=== PATIENT | female | born 1985 | race Asian ===

== ENCOUNTER 2020-01-24 13:07 | Emergency (ER) | payer OTHER, SELFPAY ==
--- NOTE | ~2020-01-24 | XR_ITS ---
EXAMINATION: XR barium swallow EXAM DATE: 01/24/2020 13:56 INDICATION: Swallowed something sharp. Dysphagia. TECHNIQUE: Standard thick followed by thin contrast barium esophagram examination was performed. The DAP for this procedure was 0.2 Gycm2. There is no prior study for comparison. FINDINGS: The pharynx is symmetric and without evidence of mass lesion or mucosal irregularity. Ther e is no esophageal stricture or mass identified. There are no esophageal diverticula. Gastroesophag eal junction is normal in appearance. IMPRESSION: Normal exam. Reviewed, dictated and finalized at location A. IMPRESSION: Normal exam.
[2020-01-24 13:14] VITALS: BP 145/92; PULSE 77; RESP 17; TEMP 36.6; O2SAT 100
--- NOTE | 2020-01-24 13:33 | ED.GENADULT ---
HPI - General Adult General Chief complaint: Skin/Abscess/Foreign Body Stated complaint: FB in throat Time Seen by Provider: 01/24/20 13:23 Source: patient History of Present Illness HPI narrative: Patient believes that a lennon seed stuck at the left side of her throat since last night,. Patient vomited once, currently complaining of achy pain at the left side of her throat. Related Data Home Medications Medication Instructions Recorded Confirmed clobetasol TOPICAL 01/24/20 folic acid 01/24/20 methotrexate sodium 01/24/20 Allergies Allergy/AdvReac Type Severity Reaction Status Date / Time No Known Allergies Allergy Unverified 01/24/20 13:38 Review of Systems Review of Systems: Narrative: CONSTITUTIONAL: Denies fever, chills, or sweats. EYES: Denies visual changes, redness, or discharge. ENT: Denies rhinorrhea, congestion, sore throat, or otalgia. CARDIOVASCULAR: Denies chest pain, palpitations, or edema. RESPIRATORY: Denies cough or dyspnea. GASTROINTESTINAL: Denies abdominal pain, nausea, vomiting, or diarrhea. GENITOURINARY: Denies dysuria or hematuria. SKIN: Denies rash or itching. MUSCULOSKELETAL: Denies back pain, joint pain, or myalgia. NEUROLOGIC: Denies headache, numbness, or weakness. PSYCHIATRIC: Denies anxiety or depression. PMFSH Social History Social History Gender identity (if verbalized by the patient): Female Exam Narrative: Exam Narrative: General appearance: Well-developed, well-nourished Skin: Normal color Head: Normocephalic, nontraumatic Eyes: Clear conjunctiva ENT: Oropharynx normal, ears normal, nose normal Neck: Supple, nontender Chest and respiratory: Airway patent, no respiratory distress, no accessory muscle use Heart: Regular rate/rhythm Neurologic: Alert and oriented ?3, CHEF INSTRUCTOR is normal as tested, no gross motor deficit Course Course Emergency Course: Stable Vital Signs Vital signs: Vital Signs Temperature 36.6 C 01/24/20 13:14 Pulse Rate 77 01/24/20 13:14 Respiratory Rate 17 01/24/20 13:14 Blood Pressure 145/92 H 01/24/20 13:14 Pulse Oximetry 100 01/24/20 13:14 Temperature 36.6 C 01/24/20 13:14 Pulse Rate 77 01/24/20 13:14 Respiratory Rate 17 01/24/20 13:14 Blood Pressure 145/92 H 01/24/20 13:14 Pulse Oximetry 100 01/24/20 13:14 Medical Decision Making MDM Narrative Medical decision making narrative: Barium swallow ordered. Further plan to follow Vital Signs Vital Signs: Vital Signs Temperature 36.6 C 01/24/20 13:14 Pulse Rate 77 01/24/20 13:14 Respiratory Rate 17 01/24/20 13:14 Blood Pressure 145/92 H 01/24/20 13:14 Pulse Oximetry 100 01/24/20 13:14 Temperature 36.6 C 01/24/20 13:14 Pulse Rate 77 01/24/20 13:14 Respiratory Rate 17 01/24/20 13:14 Blood Pressure 145/92 H 01/24/20 13:14 Pulse Oximetry 100 01/24/20 13:14 Imaging Data Radiologist's impression: ITS Impressions Barium Swallow X-Ray 01/24/20 14:00 IMPRESSION: Normal exam. Critical Care Time Critical Care Time Critical Care Time: No Discharge Plan Discharge Clinical Impression: Acute sore throat Patient Disposition: Home, Self-Care Condition: Stable Instructions: Foreign Body Ingestion (ED) Additional Instructions: Return if symptoms are worsening , call your family physician for appointment, take Tylenol as as needed for aches and pain, continue home medications. Prescriptions: No Action clobetasol 0.05 % cream TOPICAL RF: 0 methotrexate sodium 2.5 mg tablet RF: 0 folic acid 1 mg tablet RF: 0 Follow-up/Referral
== END 2020-01-24 14:40 | disposition home or self-care (01) ==
PROVIDERS: Emergency Provider Emergency Medicine; PCP Nurse Practitioner Family
DX: J02.9 Acute pharyngitis, unspecified (principal)
CPT/HCPCS: 74220; 99283

== ENCOUNTER 2022-03-28 14:38 | Outpatient (CLI) | payer OTHER, SELFPAY ==
--- NOTE | ~2022-03-28 | XR_ITS ---
EXAMINATION: XR chest 2V 03/28/2022 14:55 INDICATION: Dyspnea PROCEDURE: 2 view chest COMPARISON: No prior studies for comparison. FINDINGS: The lungs are clear. The cardiomediastinal silhouette is within normal limits. There are no pleural effusions. There is no pneumothorax suspected. Mild dextroscoliosis. IMPRESSION: 1: NO ACUTE CARDIOPULMONARY DISEASE. Reviewed, dictated and finalized at location A.
== END 2022-03-28 14:39 | disposition home or self-care (01) ==
PROVIDERS: PCP Nurse Practitioner Family; Visit Provider Nurse Practitioner Family
DX: R06.00 Dyspnea, unspecified (principal)
CPT/HCPCS: 71046

== ENCOUNTER 2023-04-09 13:04 | Outpatient (CLI) | payer OTHER, SELFPAY ==
--- NOTE | ~2023-04-09 | XR_ITS ---
XR wrist LT min 3V DATE: 04/09/2023 13:22 INDICATION: Left wrist pain TECHNIQUE: 4 views COMPARISON: None FINDINGS: No fracture or dislocation, periosteal reaction or bone destruction, joint space narrowing, erosive change or chondrocalcinosis is detected. IMPRESSION: Negative Reviewed, dictated and finalized at location B. IMPRESSION: Negative
== END 2023-04-09 13:05 | disposition home or self-care (01) ==
PROVIDERS: PCP Nurse Practitioner Family; Visit Provider Nurse Practitioner Family
DX: M25.532 Pain in left wrist (principal)
CPT/HCPCS: 73110

== ENCOUNTER 2024-12-29 10:11 | Outpatient (CLI) | payer OTHER, SELFPAY ==
--- NOTE | ~2024-12-29 | MM_ITS ---
EXAMINATION: MM screening imani BI w stewart HISTORY: Screening TECHNIQUE: Craniocaudal and mediolateral oblique 3-D tomosynthesis images were obtained and synthetic 2-D images were generated. CAD analysis was submitted and interpreted. COMPARISON: No prior mammogram is available for comparison at this institution. BREAST PARENCHYMAL COMPOSITION: Dense: The breasts are heterogeneously dense, which may obscure small masses FINDINGS: There is no evidence of suspicious mass, calcification, or architectural distortion to sugg est malignancy in either breast. There has been no suspicious interval change. IMPRESSION: 1. No mammographic evidence of malignancy. 2. Recommend routine screening mammography in one year. BI-RADS Category 1: Negative Reviewed, dictated and finalized at location A.
--- OUTSIDE RECORDS SUMMARY | 2024-12-29 10:22 | XMS_ITS | Clinical Summary ---
Author Organization [facility] Address [address] [place] [address] Phone Care Team Providers Care Able Bodied Watchman Name Role Phone Alex Chamberlain APRN, PETROLOGIST Primary Care Provider Deepali Mcgovern MD Unavailable Allergies No known active allergies Medications fexofenadine (JESSICA) 180 MG Tablet Take 180 mg by mouth. 8 Active etonogestrel (NEXPLANON) 68 MG Implant 68 mg by Subcutaneous route. Active Dupilumab (DUPIXENT SC) 1 auto injector by Subcutaneous route every 14 days. Active Active Problems Problem Noted Date Diagnosed Date Thyroid nodule 04/14/2019 History of thyroid cancer 04/14/2019 Immunizations Immunization Administration Dates Next Due Influenza Vaccine 03/22/2016 Influenza Vaccine, Quadrivalent, PF 03/25,04/05/2021,04/23/2020,2017 Influenza Vaccine,unspecifie d Formulation 04/29/2019 TDAP Vaccine 04/30/2016,03/14/2016 Family History Medical History Relation Name Comments No Known Problems Brother 1 No Known Problems Brother 2 No Known Problems Brother 3 No Known Problems Brother 4 No Known Problems Father Chronic Obstructive Pulmonary Disease Mother Heart Disease Mother Hepatitis Mother No Known Problems Sister 1 No Known Problems Sister 2 No Known Problems Sister 3 No Known Problems Sister 4 Relation Name Status Comments Brother 1 Alive Brother 2 Alive Brother 3 Alive Brother 4 Alive Father Alive Mother Alive Sister 1 Alive Sister 2 Alive Sister 3 Alive Sister 4 Alive Social History Tobacco Use Types Packs/Day Years Used Date Smoking Tobacco: Never Smokeless Tobacco: Never Tobacco Cessation:Counseling Given: No Alcohol Use Standard Drinks/Week Comments Not Currently 0 (1 standard drink = 0.6 oz pur e alcohol) AUDIT-C Answer Date Recorded Frequency of Alcohol Consumption Never 04/14/2019 Average Number of Drinks Not on file 019 Frequency of Binge Drinking Not on file 03/26 Sexually Active Control Partners Comments Yes Male Comments No Sex and Gender Information Value Date Recorded Sex Assigned at Not on file Legal Sex Female 12:09 AM CDT Gender Identity Not on file Sexual Orientation Not on file Last Filed Vital Signs Vital Sign Reading Time Taken Comments Blood Pressure 105/44 07/10/2024 10:10 AM TOURIST ESCORT Pulse 69 07/10/2024 10:10 AM TOURIST ESCORT Temperature 36.3 C (97.4 F) 07/10/2024 10:10 AM TOURIST ESCORT Respiratory Rate 16 07/10/2024 10:10 AM TOURIST ESCORT Oxygen Saturation 100% 07/10/2024 10:10 AM TOURIST ESCORT Inhaled Oxygen Concentration - - Weight 60.3 kg (133 lb) 07/10/2024 9:30 AM TOURIST ESCORT Height 152.4 cm (5') 07/10/2024 9:30 AM TOURIST ESCORT Body Mass Index 25.97 07/10/2024 9:30 AM TOURIST ESCORT Plan of Treatment Upcoming Encounters Date Type Department Care Team (Late st Contact Info) Description 04/27/2025 10:00 AM TOURIST ESCORT Office Visit [facility] - Endocrinology - [place] [address] [place] [id number] Deepali Mcgovern MD [address] [address] Health Maintenance Due Date Last Done Comments Mammogram 1984 Human Papillomavirus (HPV) Immunization (1 - 3-dose series) 1999 Hepatitis B Immunization (1 of 3 - 19+ 3-dose series) 2003 Pap Smear 2005 Cervical Cancer Screening (CCS) 2014 HPV/Cotest 2014 SARS-COV-2 Immunization ( season) 2024 07/22/2021, 11/14/2020, 10/11/2020 Discussion re Starting/Frequency of Mammograms 2024 Influenza Immunization (Season Ended) 2025 04/12/2022, 04/05/2021, 04/23/2020, Additional history exists Td Immunization Every 10 Years (Adults With 1 Tdap) 04/30/2026 04/30/2016, 03/14/2016 Respiratory Syncytial Virus (RSV) Immunization (Adult) (1 - 1-dose 75+ series) 2059 DTaP/Tdap/Td Immunization Discontinued 04/30/2016, Hepatitis C Virus (HCV) Screening Completed 06/07/2019 Meningococcal Immunization (ACWY) Aged Out No longer eligible based on patient's age to complete this topic Pneumococcal Immunization Combined Aged Out No longer eligible based on patient's age to complete this topic Rotavirus Immunization Aged Out No lo nger eligible based on patient's age to complete this topic Insurance MEDICAID [place] Care Teams Able Bodied Watchman Relationship Specialty Start Date End Date Alex Chamberlain, RETAIL INTERIOR DESIGNER, PETROLOGIST [address] [place] [address] PCP - General Certified Nurse Practitioner 02/19/19 Deepali Mcgovern MD [address] [phone] Consulting Physician Endocrinology 04/14/22
--- OUTSIDE RECORDS SUMMARY | 2024-12-29 10:22 | XMS_ITS | Encounter Summary ---
Author Organization [facility] Address [address] [place] [address] Care Team Providers Care Yarn Weigher Name Role Phone ChamberlainAlex LAND COMMISSIONER-FOUNTAIN MANAGER Primary Care Provider Reason for Visit * Reason Onset Date Comments Nurse Only 04/24/2024 Encounter Details Date Type Department Care Team (Late st Contact Info) Description 04/24/2024 Telephone [facility] - Dermatology [address] [place] [address], [place] [phone] Silvia Quezada MD [facility] [place] [address] Nurse Only Social History Tobacco Use Types Packs/Day Years Used Date Smoking Tobacco: Never Smokeless Tobacco: Never Alcohol Use Standard Drinks/Week Comments No 0 (1 standard drink = 0.6 oz pur e alcohol) Comments No Sex and Gender Information Value Date Recorded Sex Assigned at Not on file Legal Sex Female 3:01 PM CDT Gender Identity Not on file Sexual Orientation Not on file documented as of this encounter Progress Notes * Ana Cyr - 04/30/2024 9:35 AM CST Called and spoke with patient regarding approval of Dupixent and transfer of script to [facility] Specialty pharmacy. Patient has already received a phone call from [facility] regarding her prescription. Ana Cyr- Pharmacy Bridal Service Sales And Management (Dermatology) NG MACHINE BACK TENDER * Ana Cyr - 04/25/2024 2:44 PM CDT Medication Prior Authorization: Medication: Dupixent 300mg/2ml pen Status: Approved 04/23/24 through 04/23/25 Submitted via: [employer] Insurance: [employer] [place] (p: [phone]) Case/Reference number: [id number] RX Card Billing Info: BIN: [id number] PCN: [id number] GROUP: [id number] ID: [id number] PA approval notice uploaded to media tab. Routed approval details to [facility]. Ana Cyr- Pharmacy [facility] (Dermatology) documented in this encounter Miscellaneous Notes * Telephone Encounter - Bebe Hernandez - 04/24/2024 9:35 AM CDT Pt would like to speak with provider regarding medication. She is stating that she has followed thesteps that provider instructed to clearing her eczema and its has got worst. She also is asking if their is an update on injection medication from insurance. CB# [phone] documented in this encounter Plan of Treatment Not on file documented as of this encounter Visit Diagnoses Not on filedocumented in this encounter Care Teams Yarn Weigher Relationship Specialty Start Date End Date Alex Chamberlain, LAND COMMISSIONER-FOUNTAIN MANAGER [address] [place] [address] [place] [address] PCP - General Nurse Practitioner Family 11/13/17 documented as of this encounter
--- OUTSIDE RECORDS SUMMARY | 2024-12-29 10:22 | XMS_ITS | Continuity of Care Document ---
Author Name [facility] Organization [facility] Care Team Providers Care Entry Level Accounting Clerk Name Role Phone [facility] Unavailable Unavailable Social History Combined list of available smoking, tobacco, and other social history from Department of Defense and Veterans Affairs facilities. Social History Type Response Date Comment Sourc e This section is an empty social history section. [facility]
--- OUTSIDE RECORDS SUMMARY | 2024-12-29 10:22 | XMS_ITS | Data Portability ---
Author Organization [facility] Address [address] [place] [address] [place] [address] Care Team Providers Care Primary Care Nurse Name Role Phone JENI GREENE Primary Care Provider Assessment Encounter Date Assessment Date Assessment LastModified by Organization Details LastModified Time 10/02/2022 10/02/2022 Annual gynecological exam performed. Patient will come back in a year unless there are new symptoms. [email or web address] Not available 10/02/2022 11:27:17 10/08/2023 10/08/2023 Annual gynecological exam performed. Patient will come back in a year unless there are new symptoms. [email or web address] Not available 10/08/2023 09:14:49 Plan of Treatment Reminders Order Date Submit Date Provider Last Modified By Organization Details Last Modified Time Details Appointments None recorded. Lab test, urine 2023 024 [email or web address] 1 [place], [address], [place], [address], 13:18:14 Referral None recorded. Procedures None recorded. Surgeries None recorded. Imaging MAMMO, screening, digital, bilateral 2023 024 [facility], [address], [facility], [place], [address], 4 05:01:36 Medication Orders Nexplanon 68 mg subdermal implant 2023 024 [email or web address] 1 [id number], [address], [place], [place], [id number], 13:20:29 Patient TargetsNo targets recorded. Patient Instructions Encounter Date Encounter Id Patient Instructions Last Modified By Organization Details Last Modified Time 07/02/2023 [id number] surgical trays* [email or web address] Not availabl e 07/12/2023 13:13:59 Reason for Referral None Reported. Results Created Date Observation Date Name Description Value Unit Range Abnormal Flag Note LastModifiedBy Organization Detail LastModifiedTime 07/12/19 21 07/13/2020 beta- HCG, quant itati ve, serum or plasm a beta-HCG, serum, (quantitativ e) <1 mIU/m L HCG Refer ence Range s: Males : <0.2- 2.6 mIU/m L Nonpr egnan t Femal e: <0.2- 5 mIU/m L Post- menop ausal Femal e: <0.2- 8.3 mIU/m L Elisa l Pregn daren: Week 3 hCG Range : 5.8-7 1.2 mIU/m L Week 4 hCG Range : 9.5-7 50 mIU/m L Week 5 hCG Range : 217-7 138 mIU/m L Week 6 hCG Range : 158-3 1795 mIU/m L Week 7 hCG Range : 3697- 25473 3 mIU/m L Week 8 hCG Range : 98018 -1495 71 mIU/m L Week 9 hCG Range : 43125 -1514 10 mIU/m L Week 10 hCG Range : 18490 -1869 77 mIU/m L Week 12 hCG Range : 66211 -2106 12 mIU/m L Week 14 hCG Range : 22366 -6253 0 mIU/m L Week 15 hCG Range : 84685 -7097 1 mIU/m L Week 16 hCG Range : 9040- 21251 mIU/m L Week 17 hCG Range : 8175- 01507 mIU/m L Week 18 hCG Range : 8099- 40952 mIU/m L Not Available [facility] ([facility]) [address], [place], [address], 07/13/2020 06:17:40 10/03/19 23 10/02/2022 IMAGE GUIDE D PAP AND HPV REGAR DLESS image guided Pap, HPV regardless of Pap result SEE RESULT S BELOW CASE REPOR T: Cytol ogy Gynec ologi [place] Repor t Case: [id number] Autho vin ivory Provi mendoza: Leilani Stark, PALS SPECIALIST Colle cted: 10/02 1516 Order ing Locat ion: [place] [facility] Recei darius: 10/03 0328 First Scree n: Susanna Abreu, CT Rescr een: Elliot headley, Bartolo castillo, CT Speci men: Scree yessenia Pap - Image d, Cervi x STATE MENT OF ADEQU ACY: Satis facto ry for evalu ation Trans forma tion zone compo nent absen t The absen ce of an endoc ervic al compo nent was confi rmed by an addit ional scree ner. FINAL DIAGN OSIS: Negat roderick for Intra epith elial Lesio n or Reinaldo baker (NIL) . Funga l organ isms morph ologi gardenia consi stent with Shavon da spp. Elect paul watson adam d by Elliot headley, Bartolo castillo, CT on 2022 at 7:04 PM ----- ----- ----- ----- ----- ----- ----- ----- ----- ----- ----- ----- ----- ----- ----- ----- ----- ---- HPV RESUL TS: HPV mRNA E6/E7 : No HPV mRNA Detec lynette NOTE: This high risk HPV mRNA assay detec ts fourt een high- risk HPV types (16, 18, 31, 33, 35, 39, 45, 51, 52, 56, 58, 59, 66, 68) witho ut diffe renti ation . COMME NT: This speci men was revie wed by a Cytot echno logis t and/o r Patho logis t (as indic ated in this repor t) after evalu ation using the Thinp rep Imagi ng Syste m. [facility] [place] INFOR MATIO N: Menst rual Statu s: LMP (if appli cable ): [facility]ini [place] Histo ry/Pr eviou s Pap: Type of Neopl loy (if appli cable ): Signi fican t [facility] [place] Findi ngs: Other Histo ry: Hormo jonathon (if appli cable ): PAP EDUCA LEXI L NOTE: The Pap Test is a scree yessenia test with an inher ent false negat roderick rate. Liqui d-bas ed sampl ing may decre ase, but will not elimi kieran, false negat roderick resul ts. A negat roderick resul t does not precl ude the prese nce and/o r devel opmen t of disea se, since the prese nce of abnor mal cells in the sampl e depen ds on the locat ion of the lesio n and sampl ing techn ique. Willi nued regul ar scree yessenia is the best metho d of cance r preve ntion . If repor lynette cytol ogic findi ng do not corre late with physi [place] and/o r histo rical findi ngs, furth er inves tigat ion is recom lisbet d, as clini gardenia cortes nted. Not Available [facility] (Lab) [address], [place], [address], 10/05/2022 20:06:47 07/02/19 24 07/02/2023 pregn daren test, urine HCG negati ve Not Available [place] [address], [place], [address], 07/02/2023 13:17:46 Result Notes None recorded. 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 09:45:22 Abnormal uterine bleeding [id number] 100 Completed 201606/28/2020 Other specifie d abnormal uterine and vaginal bleeding ;Recorde d Elsewher e: No Locat ion: [facility] S ource: EHR Field Research Associate tristin: N Practi ce ID: [id number] Catracho lable Time: 10:30:00 AM Aleksandra cha, [facility] 09:43:53 Gestatio nal diabetes mellitus [id number] Completed 201506/28/2020 Gestatio nal diabetes mellitus in pregnanc y, diet controll ed;Recor ded Elsewher e: No Locat ion: [facility] Practi ce ID: [id number] Catracho lable Time: 01:00:00 PM Aleksandra cha, [facility] 09:44:42 Routine antenata l care Completed 201006/28/2020 Supervis ion of other normal pregnanc y;Practi ce ID: 0001 Aleksandra cha, [facility] 09:45:14 Speciali zed medical examinat ion Completed 201006/28/2020 Routine gynecolo gical examinat ion;Prac adriana ID: 0001 Aleksandra cha, [facility] 09:45:24 Pregnanc y test positive [id number] Completed 201006/28/2020 Positive Pregnanc y Test;Pra ctice ID: 0001 Aleksandra cha, [facility] 09:44:52 Screenin g for malignan t neoplasm of cervix Completed 201006/28/2020 Pap Smear;Pr actice ID: 0001 Aleksandra cha, [facility] 09:45:15 Primigra deep [id number] Completed 201006/28/2020 Supervis ion of normal first pregnanc y;Practi ce ID: 0001 Aleksandra cha, [facility] 09:45:08 anatomy study Completed 201006/28/2020 [facility] ANATMC SURVEY;P ractice ID: 0001 Aleksandra cha, [facility] 09:44:01 Pregnanc y detectio n examinat ion Completed 201506/28/2020 Encounte r for pregnanc y test, result positive ;Practic e ID: 0001 Aleksandra cha [facility] 09:44:49 Normal pregnanc y in multigra deep [id number] 4106 Completed 201506/28/2020 Encounte r for suprvsn of normal pregnanc y, first trimeste r;Practi ce ID: 0001 Aleksandra cha, [facility] 09:44:48 Abnormal finding on antenata l screenin g of mother [id number] Completed 201506/28/2020 Abnormal hematolo g finding on antenata l screenin g of mother;R ecorded Elsewher e: No [facility] S ource: EHR Field Research Associate tristin: N Practi ce ID: 0001 Catracho lable Time: 04:15:00 PM Aleksandra cha [facility] 09:43:51 Gestatio n period, 34 weeks [id number] Completed 201506/28/2020 34 weeks gestatio n of pregnanc y;Record ed Elsewher e: No Locat ion: Jeff huang [facility] S ource: EHR Field Research Associate tristin: N Practi ce ID: [id number] Catracho lable Time: 11:30:00 AM Aleksandra cha, [facility] 09:44:33 finding Completed 201506/28/2020 Matern care for oth or susp poor fetl grth, third tri, unsp;Rec orded Elsewher e: No Locat ion: [facility] S ource: EHR Field Research Associate tristin: N Practi ce ID: [id number] Catracho lable Time: 01:00:00 PM Aleksandra cha, [facility] 1 09:44:03 Gestatio n period, 36 weeks [id number] Completed 201506/28/2020 36 weeks gestatio n of pregnanc y;Record ed Elsewher e: No Locat ion: [facility] S ource: EHR Field Research Associate tristin: N Damiánti ce ID: [id number] Catracho lable Time: 11:30:00 AM Aleksandra cha, [facility] 09:44:36 Educatio n Completed 201606/28/2020 Encounte r for other general counseli ng and advice on contrace ption;Re corded Elsewher e: No Locat ion: [facility] S ource: EHR Field Research Associate tristin: N Damiánti ce ID: [id number] Catracho lable Time: 08:45:00 AM Aleksandra cha, [facility] 1 09:44:00 Imaging result abnormal [id number] Completed 201706/28/2020 Abnormal findings on diagnost ic imaging of body structur es;Recor ded Elsewher e: No Locat ion: [facility] S ource: EHR Field Research Associate tristin: N Damiánti ce ID: [id number] Catracho lable Time: 10:00:00 AM Aleksandra cha, [facility] 09:44:43 Gestatio n period, 35 weeks [id number] Completed 201506/28/2020 35 weeks gestatio n of pregnanc y;Record ed Elsewher e: No Locat ion: Jeff huang [facility] S ource: EHR Field Research Associate tristin: N Practi ce ID: [id number] Catracho lable Time: 11:30:00 AM Aleksandra cha, [facility] 09:44:35 Gestatio n period, 31 weeks [id number] Completed 201506/28/2020 31 weeks gestatio n of pregnanc y;Record ed Elsewher e: No Locat ion: [facility] e [facility] S ource: EHR Field Research Associate tristin: N Practi ce ID: 0001 Catracho lable Time: 05:00:00 PM Aleksandra [place] cha, [facility] 09:44:28 Gestatio n period, 32 weeks [id number] Completed 201506/28/2020 32 weeks gestatio n of pregnanc y;Record ed Elsewher e: No Locat ion: [facility] S ource: EHR Field Research Associate tristin: N Practi ce ID: [id number] Catracho lable Time: 04:15:00 PM Aleksandra Clarence starla, [facility] 09:44:[address] Concept Completed 201606/28/2020 Encntr for general adult medical exam w/o abnormal findings ;Recorde d Elsewher e: No Locat ion: [facility] S ource: EHR Field Research Associate tristin: N Practi ce ID: 0001 Catracho lable Time: 08:30:00 AM Aleksandra Clarence starla, [facility] 09:45:20 Liver enzyme levels - finding [id number] Completed 201506/28/2020 Abnormal levels of other serum enzymes; Recorded Elsewher e: No [facility] S ource: EHR Field Research Associate tristin: N Practi ce ID: 0001 Catracho lable Time: 08:00:00 AM Aleksandrajessee cha [facility] 09:44:44 Single liveborn born in hospital by section [id number] Completed 201506/28/2020 Single liveborn infant delivere d by c section; Recorded Elsewher e: No Locat ion: Jeff huang [facility] S ource: EHR Field Research Associate tristin: N Practi ce ID: [id number] Catracho lable Time: 02:00:00 PM Aleksandra cha [facility] 09:45:19 Gestatio n period, 38 weeks [id number] Completed 201506/28/2020 38 weeks gestatio n of pregnanc y;Record ed Elsewher e: No [facility] S ource: EHR Field Research Associate tristin: N Practi ce ID: 0001 Catracho lable Time: 01:00:00 PM Aleksandra cha, [facility] 09:44:39 Gestatio n period, 29 weeks [id number] Completed 201506/28/2020 29 weeks gestatio n of pregnanc y;Record ed Elsewher e: No [facility]: EHR Field Research Associate tristin: N Practi ce ID: [id number] Catracho lable Time: 09:45:00 AM Aleksandra cha [facility] 09:44:26 Gestatio n period, 24 weeks [id number] Completed 201506/28/2020 24 weeks gestatio n of pregnanc y;Record ed Elsewher e: No [facility] S ource: EHR Field Research Associate tristin: N Practi ce ID: 0001 Catracho lable Time: 01:30:00 PM Aleksandra hca [facility] 09:44:07 Gestatio n period, 37 weeks [id number] Completed 201506/28/2020 37 weeks gestatio n of pregnanc y;Record ed Elsewher e: No Locat ion: [facility] S ource: EHR Field Research Associate tristin: N Practi ce ID: [id number] Catracho lable Time: 11:30:00 AM Aleksandra cha [facility] 09:44:38 Removal of intraute rine device Completed 201606/28/2020 Encounte r for removal of intraute rine contrace ptive device;R ecorded Elsewher e: No Locat ion: [facility] S ource: EHR Field Research Associate tristin: N Practi ce ID: [id number] Catracho lable Time: 10:30:00 AM Aleksandra Dodson [facility], [facility] 09:45:12 Gestatio n period, 19 weeks [id number] Completed 201506/28/2020 19 weeks gestatio n of pregnanc y;Record ed Elsewher e: No Locat ion: [facility] Practi ce ID: 0001 Catracho lable Time: 09:45:00 AM Aleksandra Dodson [facility] 09:44:06 Procedur e Completed 201606/28/2020 Enctr srvlnc implanta ble subderma l contrace ptive;Re corded Elsewher e: No Locat ion: [facility] S ource: EHR Field Research Associate tristin: N Practi ce ID: [id number] Catracho lable Time: 09:45:00 AM Aleksandra cha [facility] 09:45:10 Lochia finding Completed 201506/28/2020 Encounte r for routine postpart um follow-u p;Record ed Elsewher e: No Locat ion: [facility] S ource: EHR Field Research Associate tristni: N Practi ce ID: 0001 Catracho lable Time: 03:00:00 PM Aleksandra cha [facility] 1 09:44:46 Pregnanc y, childbir th and puerperi um finding Completed 201506/28/2020 Encounte r for supervis ion of normal first pregnanc y, second trimeste r;Record ed Elsewher e: No Locat ion: [facility] S ource: EHR Field Research Associate tristin: N Practi ce ID: [id number] Catracho lable Time: 10:30:00 AM Aleksandra cha, [facility] 09:44:54 Gestatio n period, 33 weeks [id number] Completed 201506/28/2020 33 weeks gestatio n of pregnanc y;Record ed Elsewher e: No Locat ion: [facility] S ource: EHR Field Research Associate tristni: N Practi ce ID: 0001 Catracho lable Time: 02:00:00 PM Aleksandra cha, [facility] 09:44:31 Diet educatio n Completed 201506/28/2020 Dietary counseli ng and surveill ance;Rec orded Elsewher e: No Locat ion: [facility] S ource: EHR Field Research Associate tristin: N Practi ce ID: 0001 Catracho lable Time: 09:45:00 AM Aleksandra cha, [facility] 09:43:57 Dietary manageme nt surveill ance Completed 201506/28/2020 Dietary counseli ng and surveill ance;Rec orded Elsewher e: No Locat ion: [facility] S ource: EHR Field Research Associate tristin: N Practi ce ID: 0001 Catracho lable Time: 09:45:00 AM Aleksandra cha, [facility] 09:43:58 Gestatio n period, 27 weeks [id number] Completed 201506/28/2020 27 weeks gestatio n of pregnanc y;Record ed Elsewher e: No [facility]ce: EHR Field Research Associate tristin: N Practi ce ID: [id number] Catracho lable Time: 08:00:00 AM Aleksandra cha, [facility] 09:44:09 Gestatio n period, 16 weeks [id number] Completed 201506/28/2020 16 weeks gestatio n of pregnanc y;Record ed Elsewher e: No Locat ion: [facility] S ource: EHR Field Research Associate tristin: N Practi ce ID: [id number] Catracho lable Time: 08:00:00 AM Aleksandra cha, [facility] 09:44:05 Clinical finding Completed 201506/28/2020 Maternal care for breech presenta tion, unsp;Pra ctice ID: 0001 Aleksandra Dodson [facility] 09:43:54 Single live from singleto n pregnanc y [id number] Completed 201506/28/2020 Single live ;Pr actice ID: 0001 Aleksandra cah, [facility] 09:45:17 Gestatio n period, 39 weeks [id number] Completed 201506/28/2020 39 weeks gestatio n of pregnanc y;Practi ce ID: 0001 Aleksandra cha, [facility] 09:44:40 Pregnanc y test negative [id number] Completed 201606/28/2020 Encounte r for pregnanc y test, result negative ;Practic e ID: 0001 Aleksandra cha, [facility] 09:44:50 Disorder of thyroid gland [id number] Active 2020 Aleksandra West [facility] 09:45:47 Problem Notes None recorded. Procedures Surgical History Date Name Laterality Status Provider Name and Address Organization Details Recorded Time 07/02/19 24 Control Implant Removal completed Anitra Witt [facility] 07/02/2023 13:17:38 07/02/19 24 Control Implant Insertion completed DIANA Martínez [address], [place], [address], [facility] 07/02/2023 14:03:32 10/03/19 23 Date of Last Pap Smear completed Lisseth Lockett [facility] 10/08/2023 09:15:19 07/27/19 21 [facility] 16:49:17 07/27/19 21 Nexplanon Removal completed Aleksandra Dodson [facility] 07/27/2020 14:10:33 07/13/19 21 Nexplanon Insert completed [facility] 07/13/2020 12:49:23 07/13/19 21 Nexplanon Removal [facility] 07/13/2020 12:49:30 05/03/20 16 section completed Anitra Witt [facility] 07/12/2023 13:22:50 06/25/19 15 Ovarian Cystectomy completed Anitra Witt [facility] 07/12/2023 13:23:37 08/18/19 14 section completed Anitra Witt [facility] 07/12/2023 13:22:57 06/25/19 14 [facility] 13:24:02 11/03/19 12 section completed Anitradestiny Witt [facility] 07/12/2023 13:23:05 09/24/19 11 termination of completed Anitra Witt [facility] 07/12/2023 13:24:51 Imaging Results None recorded. Procedure Notes None recorded. Medical Equipment None Reported. Allergies No known drug allergies Medications Name Sig Start Date Stop Date Status Note LastModified by Organization Details LastModified Time amoxicill in 500 mg capsule TK 1 C PO BID WF 06/28 completed Not Available Not Available Not Available betametha sone valerate 0.1 % topical ointment 06/28 completed Not Available Not Available Not Available ibuprofen 800 mg tablet TK 1 T PO Q 6 TO 8 H WF PRF PAIN 06/28 completed Not Available Not Available Not Available benzonata te 200 mg capsule TAKE 1 CAPSULE BY MOUTH THREE TIMES DAILY FOR 10 DAYS NEEDED 10/02 completed Not Available Not Available Not Available phenazopy ridine 200 mg tablet TK 1 T PO Q 8 H PRN FOR PAINFUL URINATIO N 06/28 completed Not Available Not Available Not Available clobetaso l 0.05 % topical cream APPLY AA ON THE HANDS BID 06/28 completed Not Available Not Available Not Available fluocinon syed 0.05 % topical ointment APPLY TOPICALL Y TO HANDS TWICE DAILY. DO NOT USE ON FACE 10/02 completed Not Available Not Available Not Available sulfameth oxazole 800 mg-trimet hoprim 160 mg tablet TAKE 1 TABLET BY MOUTH EVERY 12 HOURS 10/11 completed Not Available Not Available Not Available amoxicill in 500 mg tablet TAKE 1 TABLET BY MOUTH EVERY 8 HOURS 10/02 completed Not Available Not Available Not Available levothyro xine 25 mcg tablet take 1 tablet by oral route every day 11/06 completed Prescrib ed Elsewher e: Yes Loca tion: [facility] odify By: amtodd Huang ncounter DateTime : 09/27/19 16 10:30:00 AM Not Available Not Available Not Available Metrogel Vaginal 0.75 % (37.5 mg/5 gram) insert 1 applicat orful by vaginal route every day at bedtime for 5 nights 05/31 completed Prescrib ed Elsewher e: No Locat ion: [facility] odify By: amtodd lloydunter DateTime : 11/09/19 17 02:49:28 PM Not Available Not Available Not Available methotrex ate sodium 2.5 mg tablet TAKE 8 TABLETS BY MOUTH EVERY 7 DAYS 10/02 completed Not Available Not Available Not Available econazole nitrate 1 % topical cream 10/07 completed Not Available Not Available Not Available tacrolimu s 0.1 % topical ointment APPLY TO THE AFFECTED AREA TO HANDS TWICE DAILY 10/07 completed Not Available Not Available Not Available triamcino lone acetonide 0.1 % topical ointment APPLY TO HANDS TWICE DAILY 10/07 completed Not Available Not Available Not Available promethaz ine 25 mg tablet take 1 tablet by oral route every 4 - 6 hours as needed 05/31 completed Prescrib ed Elsewher e: No [facility] By: jaskaran desai DateTime : 09/27/19 16 10:30:00 AM Not Available Not Available Not Available folic acid 1 mg tablet TK 1 T PO QD 10/02 completed Not Available Not Available Not Available methylpre dnisolone 4 mg tablets in a dose pack FPD 06/28 completed Not Available Not Available Not Available albuterol sulfate HFA 90 mcg/actua tion aerosol inhaler INHALE 2 PUFFS BY MOUTH EVERY 4 HOURS NEEDED 07/02 completed Not Available Not Available Not Available Vitamin D2 1,250 mcg (50,000 unit) capsule take 1 capsule (39948ME ITS) by oral route every week 05/31 completed Prescrib ed Elsewher e: No [facility] By: amtodd desai DateTime : 11/10/19 16 01:20:11 PM Not Available Not Available Not Available nitrofura ntoin monohydra te/macroc rystals 100 mg capsule TK 1 C PO BID WITH FULL GLASS OF WATER 06/28 completed Not Available Not Available Not Available Clobetaso l 17 Propionat e 10/02 completed Not Available Not Available Not Available Triveen-D uo DHA 29 mg-1 mg-400 mg oral pack take 1 by Oral route every day 09/26 completed Prescrib ed Elsewher e: No Locat ion: [facility] odify By: brown wetzel DateTime : 03/28/20 11 01:42:34 PM Not Available Not Available Not Available PreviDent 5000 Enamel Protect 1.1 %-5 % dental paste 10/07 completed Not Available Not Available Not Available Nexplanon 68 mg subdermal implant Inject 1 implant by subcutan eous route. 2023 active 07/02/2023 nexplano n (supplie d by office) inserted lot [id number] Exp 04/2025 Not Available Not Available Not Available Accu-Chek Delia Plus test strips TEST FOUR TIMES DAILY NEEDED 05/10 completed Prescrib ed Elsewher e: No Locat ion: [facility] odify By: jaskaran desai DateTime : 04/24/20 16 10:28:08 AM Not Available Not Available Not Available Diclegis 10 mg-10 mg tablet,de layed release take 1 tablet by oral route every day in the morning, 1 tablet in the mid-afte rnoon, and 2 tablets at bedtime 05/31 completed Prescrib ed Elsewher e: No Locat ion: [facility] odify By: [email or web address] desai DateTime : 09/27/19 16 10:30:00 AM Not Available Not Available Not Available Xulane 150 mcg-35 mcg/24 hr transderm al patch apply 1 patch by transder mal route every week 11/06 completed Prescrib ed Elsewher e: No Locat ion: [facility] odify By: [email or web address] desai DateTime : 08/07/19 17 08:45:00 AM Not Available Not Available Not Available Vitals Date Recorded Body height Body mass index (BMI) Body weight Systolic And Diastolic Provider Name and Address Organization Details Last Updated DateTime 07/02/2023 152.4 cm 25.4 kg/m2 54927.01 g 110/71 mm[Hg] Anitra Witt [facility] 07/02/2023 13:14:23 Date Recorded Body height Body mass index (BMI) Body weight Systolic And Diastolic Provider Name and Address Organization Details Last Updated DateTime 08/03/2020 167.64 cm 22.6 kg/m2 94155.93 g 120/70 mm[Hg] Aleksandra West [facility] 08/03/2020 12:28:17 Date Recorded Body height Body mass index (BMI) Body weight Systolic And Diastolic Provider Name and Address Organization Details Last Updated DateTime 10/02/2022 152.4 cm 26.8 kg/m2 96930.15 g 95/57 mm[Hg] Karine Castano [facility] 10/02/2022 11:27:40 Date Recorded Body height Body mass index (BMI) Body weight Systolic And Diastolic Provider Name and Address Organization Details Last Updated DateTime 10/08/2023 152.4 cm 25.6 kg/m2 72117.6 g 96/63 mm[Hg] Lisseth Levy [facility] 10/08/2023 11:36:42 Date Recorded Body height Body mass index (BMI) Body weight Systolic And Diastolic Provider Name and Address Organization Details Last Updated DateTime 10/11/2020 167.64 cm 22.9 kg/m2 30061.12 g 101/69 mm[Hg] Aleksandra West [facility] 10/11/2020 12:08:36 Social History Question Answer Notes LastModified by Organizat ion Details LastModified Time Tobacco Smoking Status Never Smoker Gissell Sung starla [facility] 07/02/2023 12:20:26 Are You Blind Or Do You Have Difficulty Seeing? No Information n ot available 10/02/2022 What Is Your Level Of Caffeine Consumption? Occasional Information not available 10/02/2022 In The 14 Days Before Symptom Onset, Have You Had Close Contact With A Laboratory-confirm ed COVID-19 While That Case Was Ill? No Information n ot available 10/02/2022 In The 14 Days Before Symptom Onset, Have You Had Close Contact With A Person Who Is Under Investigation For COVID-19 While That Person Was Ill? No Information not available 10/02/2022 Have You Been To An Area Known To Be High Risk For COVID-19? No Information not available 10/02/2022 Are You Deaf Or Do You Have Serious Difficulty Hearing? No Information not available 10/02/2022 What Type Of Diet Are You Following? REGULAR Information n ot available 10/02/2022 What Is The Highest Grade Or Level Of School You Have Completed Or The Highest Degree You Have Received? [id number] Information not available 10/02/2022 Are There Any Guns Present In Your Home? Yes Information not available 10/02/2022 Do You Use Protection During Sex? No Information not available 10/02/2022 Do You Use Your Seat Belt Or Car Seat Routinely? Yes Information not available 10/02/2022 Do You Have Smoke And Carbon Monoxide Detectors In Your Home? Yes Information not available 10/02/2022 How Much Tobacco Do You Smoke? No [email or web address] Information not available 06/28/2020 Do You Use Sunscreen Routinely? No Information not available 10/02/2022 Have You Used IV Drugs? No Information not available 10/02/2022 Do You Have Difficulty Walking Or Climbing Stairs? No [email or web address] Information not available 07/02/2023 Sex: Unknown Functional Status Question Answer Note LastModified by Organizat ion Details LastModified Time Do you use any illicit or recreational drugs? No Information not available 10/02/2022 What is your level of alcohol consumption? None Information not available 10/02/2022 Are you able to walk? YESWOREST Information not available 10/02/2022 Are you able to care for yourself? 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 No [email or web address] Information not available 07/02/2023 What is your exercise level? None Information not available 10/02/2022 Mental Status Question Answer Note LastModified by Organization D etails LastModified Time Do you feel stressed (tense, restless, nervous, or anxious, or unable to sleep at night)? [id number] Information not available 10/02/2022 Family History Relationship Description Onset Age of this Age Resolved Age Notes LastModified by Organization Details LastModified Time Mother Acute hepatitis Not available 2020 09:49:36 Medical History Condition Response Allergies (Food, seasonal, environmental ) Y Other Y Breast Cancer N Drug/Latex Allergies/Reactions N Blood Transfusion N Dermatologic Disorders N Lung Disease N Defects or Inherited Disease N Breast Problem N Gestational Diabetes N Hematologic disorders N Anesthesia Complications N History of STI N Deep Vein Thrombosis N Polycystic ovary syndrome N Anxiety Disorder N Autoimmune disease N Arthritis N Infertility N Polyps N Acid Reflux (GERD) N History of abnormal pap N Cancer N Stroke N Varicosities N Neurologic/Epilepsy N Endometriosis N High Cholesterol N Headaches N Fibromyalgia N Kidney Disease N Heart Problems N Kidney or Bladder Problems N Thyroid Problems Y GI Problems N Eating Disorder N Anemia N Art (IVF or FET) N Psychiatric Illness N Ovarian Cancer N Diabetes N Pulmonary (TB, Asthma) N Hepatitis/Liver Disease N Eczema N Urinary Tract Infection N Abuse/Domestic Violence N Asthma Y Trauma/Violence N Depression/ depression N Heart Disease N Pre-Eclampsia N Hypertension N Osteoporosis N Thrombophilias N Gynecological History Statement/Question Response Date of Last Mammogram Flow Moderate Date of LMP 09/29/2023 N Was last menstrual period normal Y STIs/STDs N Date of control 06/28/2020 Implant Desired Control Method Implant Abnormal Pap N On BCP's at Conception? N HPV Vaccine N Duration of Flow (days) 7 Current Control Method Implant Age at First Child 26 Are cycles usually normal Y Frequency of Cycle (Q days) 30 Sexually Active? Y Menses Monthly Y Date of DEXA bone scan Age of first menstrual cycle 13 Date of Last Pap Smear 10/02/2022 Sexual Problems? N LMP Approximate N Obstetrics History GPAL:G 5 P 3 0 2 3 Type Value Full Term 3 Induced 1 Spontaneous 1 Living 3 Total 5 Past Encounters Encounter ID Performer Location Encounter Start Date Encounter Closed Date Diagnosis/Indication Diagnosis SNOMED-CT Code Diagnosis ICD10 Code Diagnosis Note [id number] [address],[place] [address] 06/28/2020 11:46:27 06/28/2020 12:39:26 Gynecologic examination 92947603 Z01.419 Take Calcium with Vitamin D 1200mg daily if not receiving in daily diet. It is strongly advised to have an annual flu shot and up can obtain at most pharmacies . If you have not had a TDap shot in the last 10 years you should obtain one as well. Discussed with patient & provided with informatio n regarding Gardisil vaccine to prevent the 4 strains for HPV that cause cervical cancer if under age 26. Encourage safe sexual practices, to use condoms and limit partners if not already in a monogamous relationsh ip. Do monthly self breast exams. Have mammogram yearly or every other year depending on family history. BRCA testing is now available for patients with strong genetic history of female cancer. If interested contact the office. Engage in daily exercise of low impact aerobic exercise 45-60 minutes 4-5 times weekly. Avoid tobacco and illicit drugs as well as using moderation with alcohol intake less than 1-2 8 oz beverages daily. This lifestyle behavior pattern will lead to less health conditions and longer life span. If BMI greater than 25 weight watchers or dietary consult advised. Nexplanon . Pt has cycles but not always regular. Will abstain for 2 weeks and schedule removal/in sert 2 weeks from tomorrow and come in the day before for hcg. Patient received above instructio ns, and questions have been answered. If you have any questions please call or respond to this email. Patient was made aware of the patient portal and may obtain a paper copy of today's plan if desired. [id number] Jocelyn Hwang CNM [place] [address],[facility] [address] 07/13/2020 12:06:55 07/13/2020 13:39:42 Removal of subcutaneous contraceptive 793990948 Z30.46 Implantati on of subcutaneous contraceptive 559241057 Z30.9 [id number] [facility] [address],[place] [address] 07/21/2020 11:56:44 07/21/2020 15:18:30 Infection of skin 674778501 L08.9 [id number] [facility] [address],[place] [address] 07/27/2020 12:48:34 07/30/2020 17:43:08 Removal of subcutaneous contraceptive 812796601 Z30.46 Will treat with another round of bactrim. Culture collected and sent. If any worsening of symptoms or new symptoms (local or systemic) she will call us right away. RTC in 1 week. Implantati on of subcutaneous contraceptive 263334134 Z30.9 RTC in 3 months for follow up. Sooner if any problems. [id number] [facility] [address],[place] [address] 08/03/2020 12:23:12 08/03/2020 17:26:49 Surveillance of subcutaneous contraceptive implant 684284148 Z30.46 Site with infection has healed. New site healed. RTC if any return of symptoms. [id number] [facility] [address],[place] [address] 10/11/2020 11:59:24 10/11/2020 17:11:07 Surveillance of subcutaneous contraceptive implant 591605746 Z30.46 Happy with nexplanon. No problems. RTC for annual exam or sooner if any problems or concerns. [id number] DIANA Martínez [place] [address],[place] [address] 10/02/2022 11:20:29 10/02/2022 11:52:42 Gynecologic examination [id number] Z01.419 Take Calcium with Vitamin D 1200mg daily if not receiving in daily diet. It is strongly advised to have an annual flu shot and up can obtain at most pharmacies . If you have not had a TDap shot in the last 10 years you should obtain one as well. Discussed with patient & provided with informatio n regarding Gardisil vaccine to prevent the 4 strains for HPV that cause cervical cancer if under age 26. Encourage safe sexual practices, to use condoms and limit partners if not already in a monogamous relationsh ip. Do monthly self breast exams. Have mammogram yearly or every other year depending on family history. BRCA testing is now available for patients with strong genetic history of female cancer. If interested contact the office. Engage in daily exercise of low impact aerobic exercise 45-60 minutes 4-5 times weekly. Avoid tobacco and illicit drugs as well as using moderation with alcohol intake less than 1-2 8 oz beverages daily. This lifestyle behavior pattern will lead to less health conditions and longer life span. If BMI greater than 25 weight watchers or dietary consult advised. Patient received above instructio ns, and questions have been answered. If you have any questions please call or respond to this email. Patient was made aware of the patient portal and may obtain a paper copy of today's plan if desired. [facility] - nexplanon. Inserted 07/27/2020, due for removal/re placement 07/27/2023ha ppy with this methodhx of HPV (+) pap in 2015, normals sincepap done todaySTI testing declinedFa m hx reviewed, imani at 39 unless otherwise indicatedU TD with PCPRTC in 1 year or sooner if needed Contracept ion care management 353785512 Z30.9 [id number] DIANA Martínez [place] [address],[place] [address] 07/02/2023 12:19:48 07/02/2023 14:14:29 Screening procedure 62946465 Z13.9 Implantati on of subcutaneous contraceptive 244883047 Z30.46 nexplanon removal/re placement performed (see procedure note)pt tolerated procedure wellprecau tions reviewedme d check recommende d in 3 months Removal of subcutaneous contraceptive 592150927 Z30.46 [id number] DIANA Martínez [place] [address] [address] 10/08/2023 11:27:13 10/08/2023 12:41:39 Gynecologic examination 01381694 Z01.419 Z11.51 [facility] - nexplanon (inserted 07/02/2023, will 07/02/2026)p ap updateddec lined STI screenmamm ogram order given - schedule after bdayroutin e labs UTD/PCP Take Calcium with Vitamin D daily if not receiving in daily diet.It is strongly advised to have an annual flu shot and up can obtain at most pharmacies . If you have not had a TDap shot in the last 10 years you should obtain one as well. Discussed with patient & provided with informatio n regarding Gardisil vaccine to prevent the 4 strains for HPV that cause cervical cancer if under age 26. Encourage safe sexual practices, to use condoms and limit partners if not already in a monogamous relationsh ip.Do monthly self breast exams. Have mammogram yearly or every other year depending on family history. BRCA testing is now available for patients with strong genetic history of female cancer. If interested contact the office. Engage in regular exercise. Avoid tobacco and illicit drugs. This lifestyle behavior pattern will lead to less health conditions and longer life span. If BMI greater than 25 dietary consult advised. Patient received above instructio ns, and questions have been answered. If you have any questions please call or respond to this email. Patient was made aware of the patient portal and may obtain a paper copy of today's plan if desired. Venereal d isease screening 574611565 Z11.3 Health Concerns Section Related Observation LastModified by Organization Detai ls LastModified Time None Recorded Concern Status LastModified by Organization Details LastModified Time None Recorded Advance Directives Directive None Recorded Payers Insurance Date Sequence Insurance Name Policy Number Policy Weinberg Covered Member ID Weinberg Member ID Guarantor Name 10/08/2023 1 [facility] (MEDICAID HMO) [id number] Marques Olivares [id number] Maruqes Olivares Notes Date Note Type Note Provider Name and Address Organization Details Recorded Time 08/03/2020 text/html No pain, tenderness, or drainage. Jocelyn cha [facility] 08/03/2020 16:30:35 10/11/2020 text/html Happy with nexplanon. Site healed. No problems. Cycles a little irregular but similar to when she had her nexplanon before. Jocelyn cha [facility] 10/11/2020 14:11:09 10/02/2022 text/html Annual GYNReport ed bypatient.Menstrual cycle:Normal menses Urinary symptoms:No hematuria; No incontinence Vulva:No genital lesion Vagina:Normal vaginal discharge Breast:No breast pain; No breast lump; No nipple discharge Current Contraception:Satis fied with current contraception; Subdermal contraceptive implant Sexual complaints:No sexual complaints; No pain during intercourse; Normal libido Menopausal Symptoms:No menopausal symptoms; Normal vaginal lubrication Psychological symptoms:No depression; No anxiety; No PMDD Preventive measures:Encourage self breast examination; Encourage regular exercise; Encourage no tobacco use; Encourage regular mammograms starting age 40 DIANA Martínez [address], [place], [address], [facility] 10/02/2022 11:43:50 07/02/2023 text/html 38yopresents for nexplanon removal/replacement current nexplanon expires next month DIANA Martínez [address], [place], [address], [facility] 07/02/2023 14:05:23 10/08/2023 text/html Annual GYNReport ed bypatient.Menstrual cycle:Normal menses Urinary symptoms:No hematuria; No incontinence Vulva:No genital lesion Vagina:Normal vaginal discharge Breast:No breast pain; No breast lump; No nipple discharge Current Contraception:Satis fied with current contraception; Subdermal contraceptive implant Sexual complaints:No sexual complaints; No pain during intercourse; Normal libido Menopausal Symptoms:No menopausal symptoms; Normal vaginal lubrication Psychological symptoms:No depression; No anxiety; No PMDD Preventive measures:Encourage self breast examination; Encourage regular exercise; Encourage no tobacco use; Encourage regular mammograms starting age 39Notes:[id number] - nexplanon, inserted 07/02/23 : doing well, no issuesh/o HPV (+) pap in 2016last pap 09/2022 : normalUTD with PCP [address], [place], [address], [facility] 10/08/2023 12:32:52 OBGyn Episode Ob Episode Information Episode Created Date Number of Fetuses Patient Bloodtype Patient rh Status Prepregnancy Weight lbs Domestic Partner Domestic Partner Phone Father Name Senior Property Accountant Status 06/28/19 21 1 CLOSED Fetus Data First Name Last Name Admitted to NICU Weight (g) Sex Living Outcome Pediatric Complications Fetus ID Race Codes Race Delivery Type , Spontane ous [id number] Parag Calculation Initial Parag Date Initial Exam Date Initial Exam Provider Initial Ultrasound Date Last Menstrual Period Date Ultra Sound Weeks Gestation 0 Eighteen To Twenty Week Parag Update Ultra Sound Date Fundal Height At Umbil Quickening Date Ultra Sound Latest Weeks Gestation Final Parag Confirmed By Final Parag Confirmed Date Final Parag Date Ultra Sound Latest Days Gestation 0 0 Menstrual History Last Menstrual Date Menses Monthly On Bcp Conception Prior Menses Frequency Hcg Plus Date Menarche Onset Age Delivery Information Delivery Date Delivery Type Labor Anesthesia Weeks Gestation Incision Type Labor Labor Length Hrs Delivered By Post Complications Tubal Sterilization Discharge Date Comments 3 Discharge Information Feeding Method Contraceptive Method Maternal HG B and HCT Levels Ob Episode Information Episode Created Date Number of Fetuses Patient Bloodtype Patient rh Status Prepregnancy Weight lbs Domestic Partner Domestic Partner Phone Father Name Senior Property Accountant Status 06/28/19 21 1 CLOSED Fetus Data First Name Last Name Admitted to NICU Weight (g) Sex Living Outcome Pediatric Complications Fetus ID Race Codes Race Delivery Type , Induced [id number] Parag Calculation Initial Parag Date Initial Exam Date Initial Exam Provider Initial Ultrasound Date Last Menstrual Period Date Ultra Sound Weeks Gestation 0 Eighteen To Twenty Week Parag Update Ultra Sound Date Fundal Height At Umbil Quickening Date Ultra Sound Latest Weeks Gestation Final Parag Confirmed By Final Parag Confirmed Date Final Parag Date Ultra Sound Latest Days Gestation 0 0 Menstrual History Last Menstrual Date Menses Monthly On Bcp Conception Prior Menses Frequency Hcg Plus Date Menarche Onset Age Delivery Information Delivery Date Delivery Type Labor Anesthesia Weeks Gestation Incision Type Labor Labor Length Hrs Delivered By Post Complications Tubal Sterilization Discharge Date Comments 1 Discharge Information Feeding Method Contraceptive Method Maternal HG B and HCT Levels Ob Episode Information Episode Created Date Number of Fetuses Patient Bloodtype Patient rh Status Prepregnancy Weight lbs Domestic Partner Domestic Partner Phone Father Name Senior Property Accountant Status 06/28/19 21 1 CLOSED Fetus Data First Name Last Name Admitted to NICU Weight (g) Sex Living Outcome Pediatric Complications Fetus ID Race Codes Race Delivery Type 3628.73 6 F Full Term [id number] Repeat Parag Calculation Initial Parag Date Initial Exam Date Initial Exam Provider Initial Ultrasound Date Last Menstrual Period Date Ultra Sound Weeks Gestation 0 Eighteen To Twenty Week Parag Update Ultra Sound Date Fundal Height At Umbil Quickening Date Ultra Sound Latest Weeks Gestation Final Parag Confirmed By Final Parag Confirmed Date Final Parag Date Ultra Sound Latest Days Gestation 0 0 Menstrual History Last Menstrual Date Menses Monthly On Bcp Conception Prior Menses Frequency Hcg Plus Date Menarche Onset Age Delivery Information Delivery Date Delivery Type Labor Anesthesia Weeks Gestation Incision Type Labor Labor Length Hrs Delivered By Post Complications Tubal Sterilization Discharge Date Comments 4 40 Discharge Information Feeding Method Contraceptive Method Maternal HG B and HCT Levels Ob Episode Information Episode Created Date Number of Fetuses Patient Bloodtype Patient rh Status Prepregnancy Weight lbs Domestic Partner Domestic Partner Phone Father Name Senior Property Accountant Status 06/28/19 21 1 CLOSED Fetus Data First Name Last Name Admitted to NICU Weight (g) Sex Living Outcome Pediatric Complications Fetus ID Race Codes Race Delivery Type 3175.14 4 M Full Term [id number] Primary Parag Calculation Initial Parag Date Initial Exam Date Initial Exam Provider Initial Ultrasound Date Last Menstrual Period Date Ultra Sound Weeks Gestation 0 Eighteen To Twenty Week Parag Update Ultra Sound Date Fundal Height At Umbil Quickening Date Ultra Sound Latest Weeks Gestation Final Parag Confirmed By Final Parag Confirmed Date Final Parag Date Ultra Sound Latest Days Gestation 0 0 Menstrual History Last Menstrual Date Menses Monthly On Bcp Conception Prior Menses Frequency Hcg Plus Date Menarche Onset Age Delivery Information Delivery Date Delivery Type Labor Anesthesia Weeks Gestation Incision Type Labor Labor Length Hrs Delivered By Post Complications Tubal Sterilization Discharge Date Comments 2 40 Discharge Information Feeding Method Contraceptive Method Maternal HG B and HCT Levels Ob Episode Information Episode Created Date Number of Fetuses Patient Bloodtype Patient rh Status Prepregnancy Weight lbs Domestic Partner Domestic Partner Phone Father Name Senior Property Accountant Status 06/28/19 21 1 CLOSED Fetus Data First Name Last Name Admitted to NICU Weight (g) Sex Living Outcome Pediatric Complications Fetus ID Race Codes Race Delivery Type 3175.14 4 F Full Term [id number] Primary Parag Calculation Initial Parag Date Initial Exam Date Initial Exam Provider Initial Ultrasound Date Last Menstrual Period Date Ultra Sound Weeks Gestation 0 Eighteen To Twenty Week Parag Update Ultra Sound Date Fundal Height At Umbil Quickening Date Ultra Sound Latest Weeks Gestation Final Parag Confirmed By Final Parag Confirmed Date Final Parag Date Ultra Sound Latest Days Gestation 0 0 Menstrual History Last Menstrual Date Menses Monthly On Bcp Conception Prior Menses Frequency Hcg Plus Date Menarche Onset Age Delivery Information Delivery Date Delivery Type Labor Anesthesia Weeks Gestation Incision Type Labor Labor Length Hrs Delivered By Post Complications Tubal Sterilization Discharge Date Comments 6 39 GDM; IUG R Discharge Information Feeding Method Contraceptive Method Maternal HG B and HCT Levels
--- OUTSIDE RECORDS SUMMARY | 2024-12-29 10:22 | XMS_ITS | Data Portability ---
Author Organization [facility], Main Office Address [address] [place] [address] Assessment No assessment recorded. Plan of Treatment Reminders Order Date Submit Date Provider Last Modified By Organization Details Last Modified Time Details Appointments None recorded. Lab TSH, serum or plasma 2023 [facility] (Lab), [address] [place], [address], 4 14:40:28 lipid panel, serum 2023 024 [facility] (Lab), [address] [place], [address], 4 14:40:28 vitamin D, 1,25-dihyd stephanie, serum 2023 [facility] (Lab), [address] [place], [address], 4 14:40:29 CMP, serum or plasma 2023 024 [facility] (Lab), [address] [place], [address], 4 14:40:28 CBC w/ auto diff 2023 024 [facility] (Lab), [address] [place], [address], 4 14:40:28 glycohemog lobin, total, blood 2023 [email or web address] [facility] (Lab), [address] [place], [address], 4 15:19:52 Referral physical therapist referral - *Please call pt to schedule* 2023 [email or web address] [facility], [address] [place], [address], 4 08:49:56 Procedures None recorded. Surgeries None recorded. Imaging XR, ankle, 3 or more view 2023 024 [email or web address] [address] [facility], [address] [facility] [address], [address], 4 09:41:02 XR, wrist, 3 or more view 2022 023 [email or web address] [address] [facility], [address] [facility] [address], [address], 3 08:54:58 Medication Orders None recorded. Patient TargetsNo targets recorded. Patient InstructionsNo instructions recorded. Reason for Referral Physical Therapist Referral for Pain of left ankle joint eval and treat left ankle pain, injury in march *Please call pt to schedule* Referring Physician: Iraj Jimenez, Family Medicine, Encounter Date: 09/18/2023 Results Created Date Observation Date Name Description Value Unit Range Abnormal Flag Note LastModifiedBy Organization Detail LastModifiedTime 04/12/2004/12/2022 TSH thyroid-stim ulating hormone 2.520 uIU/m L 0.465- 4.[address] [facility] (Lab) [address] [place], [address], 04/12/2022 20:22:16 04/12/20 22 04/12/2022 LIPID PANEL cholesterol 143 mg/dL 140-19 9 [facility] SAV NSUS RECOM MENDA TION FOR BONITA STERO L: ADULT CHILD LOW RISK: <200 <170 BORDE RLINE : <200- 239 ----- HIGH RISK: >240 >200 Not Available [facility] (Lab) [address] [place], [address], 04/12/2022 19:53:17 04/12/2004/12/2022 LIPID PANEL triglyceride s 89 mg/dL 0-150 NIH SAV NSUS REPOR T RECOM MENDA TION FOR TRIGL YCERI LUIS: ADULT CHILD LOW RISK: <150 ----- BODER LINE: 150-1 99 ----- HIGH RISK: >200 ----- Not Available [facility] (Lab) [address] [place], [address], 04/12/2022 19:53:17 04/12/2004/12/2022 LIPID PANEL HDL cholesterol 50 mg/dL 40- Not Available [facility] (Lab) [address] [place], [address], 04/12/2022 19:53:17 04/12/2004/12/2022 LIPID PANEL LDL cholesterol, calculated 75 mg/dL 0-130 [facility] SAV NSUS REPOR T RECOM MENDA TIONS FOR LDL: ADULT CHILD LOW RISK <130 <110 (OPTI MAL LDL) <100 ----- BORDE RLINE : 130-1 59 ----- HIGH RISK: >160 >130 A TRIGL YCERI DE RESUL T >400 INVAL IDATE S THE CALCU LATIO N FOR LDL FRACT IONAT ION - THE LDL RESUL T WILL NOT BE REPOR TERESA. Not Available [facility] (Lab) [address] [place], [address], 04/12/2022 19:53:17 04/12/2004/12/2022 COMPR EHENS JENNIFER METAB OLIC PANEL sodium 136 mmol/ L 137-14 5 low Not Available [facility] (Lab) [address] [place], [address], 04/12/2022 19:53:10 04/12/20 22 04/12/2022 COMPR EHENS JENNIFER METAB OLIC PANEL potassium 4.0 mmol/ L 3.5-5. 1 Not Available [facility] (Lab) [address] [place], [address], 04/12/2022 19:53:10 04/12/20 22 04/12/2022 COMPR EHENS JENNIFER METAB OLIC PANEL chloride 104 mmol/ L 98-107 Not Available [facility] (Lab) [address] [place], [address], 04/12/2022 19:53:10 04/12/2004/12/2022 COMPR EHENS JENNIFER METAB OLIC PANEL carbon dioxide 29 mmol/ L 22-30 Not Available [facility] (Lab) [address] [place], [address], 04/12/2022 19:53:10 04/12/2004/12/2022 COMPR EHENS JENNIFER METAB OLIC PANEL anion gap 7.0 mmol/ L 14-22 low Not Available [facility] (Lab) [address] [place], [address], 04/12/2022 19:53:10 04/12/20 22 04/12/2022 COMPR EHENS JENNIFER METAB OLIC PANEL glucose 86 mg/dL 70-99 Not Available [facility] (Lab) [address] [place], [address], 04/12/2022 19:53:10 04/12/20 22 04/12/2022 COMPR EHENS JENNIFER METAB OLIC PANEL BUN 10 mg/dL 8-19 Not Available [facility] (Lab) [address] [place], [address], 04/12/2022 19:53:10 04/12/20 22 04/12/2022 COMPR EHENS JENNIFER METAB OLIC PANEL creatinine 0.60 mg/dL 0.66-1 .25 low Not Available [facility] (Lab) [address] [place], [address], 04/12/2022 19:53:10 04/12/2004/12/2022 COMPR EHENS JENNIFER METAB OLIC PANEL GFR >60 Refer ence Range : [place] ge GFR Healt hy Adult : >60 mL/mi n/1.7 3 m2 Chron ic Kidne y Disea se: 15-60 mL/mi n/1.7 3 m2 Kidne y Failu re: <15/m L/min /1.73 m2 www.n iddk. nih.g ov The MDRD study equat ion has not been valid ated in child nika <18 years of age; pregn ant women ; the elder ly >85 years of age; or in some racia l or ethni c subgr oups, such as Zuly nics. Outsi de the valid ated oliver eters , estim ated GFR is less accur ate, requi ring clini [place] judgm ent on a case- by-ca se basis . Clini [place] inter preta tion for other races and ages must be made by the clini trev. The MDRD study equat ion has not been valid ated for the evalu ation of serum creat inine relat ed to nutri kamaljit l statu s or medic ation usage . For perso ns <18 years of age, a pedia tric GFR calcu lator is avail able on the [facility] websi te: https :[email or web address] loaiza.farhat rick.o rg/pr ofess ional s/kdo qi/gf r_cal culat or Not Available [facility] (Lab) [address] [place], [address], 04/12/2022 19:53:10 04/12/2004/12/2022 COMPR EHENS JENNIFER METAB OLIC PANEL alkaline phosphatase 50 U/L 38-126 Not Available [facility] (Lab) [address] [place], [address], 04/12/2022 19:53:10 04/12/20 22 04/12/2022 COMPR EHENS JENNIFER METAB OLIC PANEL alanine aminotransfe rase 10 U/L 0-35 Not Available [facility] (Lab) [address] [place], [address], 04/12/2022 19:53:10 04/12/20 22 04/12/2022 COMPR EHENS JENNIFER METAB OLIC PANEL aspartate aminotransfe rase 17 U/L 15-37 Not Available [facility] (Lab) [address] [place], [address], 04/12/2022 19:53:10 04/12/20 22 04/12/2022 COMPR EHENS JENNIFER METAB OLIC PANEL bilirubin, total 0.80 mg/dL 0.20-1 .[address] [facility] (Lab) [address] [place], [address], 04/12/2022 19:53:10 04/12/20 22 04/12/2022 COMPR EHENS JENNIFER METAB OLIC PANEL calcium 8.5 mg/dL 8.4-10 .[address] [facility] (Lab) [address] [place], [address], 04/12/2022 19:53:10 04/12/20 22 04/12/2022 COMPR EHENS JENNIFER METAB OLIC PANEL total protein 6.9 g/dL 6.3-8. [address] [facility] (Lab) [address] [place], [address], 04/12/2022 19:53:10 04/12/20 22 04/12/2022 COMPR EHENS JENNIFER METAB OLIC PANEL albumin 3.8 g/dL 3.4-5. [address] [facility] (Lab) [address] [place], [address], 04/12/2022 19:53:10 04/12/20 22 04/12/2022 COMPR EHENS JENNIFER METAB OLIC PANEL globulin 3.1 g/dL 2.6-4. [address] [facility] (Lab) [address] [place], [address], 04/12/2022 19:53:10 04/12/2004/12/2022 COMPR EHENS JENNIFER METAB OLIC PANEL A/G ratio 1.2 ratio 1.0-2. [address] [facility]Lab[facility] [address] [facility] [place], [address], 04/12/2022 19:53:10 04/12/2004/12/2022 URINA LYSIS COMPL ETE, IRIS color light- yellow Not Available [facility] (Lab) [address] [place], [address], 04/12/2022 19:35:57 04/12/2004/12/2022 URINA LYSIS COMPL ETE, IRIS appear clear Not Available [facility] (Lab) [address] [place], [address], 04/12/2022 19:35:57 04/12/2004/12/2022 URINA LYSIS COMPL ETE, IRIS specific gravity 1.015 1.001- 1.[address] [facility] (Lab) [address] [place], [address], 04/12/2022 19:35:57 04/12/2004/12/2022 URINA LYSIS COMPL ETE, IRIS pH 5.5 pH_un its 5.0-9. [address] [facility] (Lab) [address] [place], [address], 04/12/2022 19:35:57 04/12/2004/12/2022 URINA LYSIS COMPL ETE, IRIS leukocytes negati ve ivan/u L negati ve- Not Available [facility] (Lab) [address] [place], [address], 04/12/2022 19:35:57 04/12/2004/12/2022 URINA LYSIS COMPL ETE, IRIS nitrite negati ve negati ve- Not Available [facility] (Lab) [address] [place], [address], 04/12/2022 19:35:57 04/12/2004/12/2022 URINA LYSIS COMPL ETE, IRIS protein negati ve mg/dL negati ve- Not Available [facility] (Lab) [address] [place], [address], 04/12/2022 19:35:57 04/12/2004/12/2022 URINA LYSIS COMPL ETE, IRIS glucose normal mg/dL normal - Not Available [facility] (Lab) [address] [place], [address], 04/12/2022 19:35:57 04/12/2004/12/2022 URINA LYSIS COMPL ETE, IRIS ketones negati ve mg/dL negati ve- Not Available [facility] (Lab) [address] [place], [address], 04/12/2022 19:35:57 04/12/2004/12/2022 URINA LYSIS COMPL ETE, IRIS urobilinogen normal mg/dL normal - Not Available [facility] (Lab) [address] [place], [address], 04/12/2022 19:35:57 04/12/2004/12/2022 URINA LYSIS COMPL ETE, IRIS bilirubin negati ve mg/dL negati ve- Not Available [facility] (Lab) [address] [facility] [place], [address], 04/12/2022 19:35:57 04/12/2004/12/2022 URINA LYSIS COMPL ETE, IRIS blood negati ve mg/dL negati ve- Not Available [facility] (Lab) [address] [place], [address], 04/12/2022 19:35:57 04/12/20 22 04/12/2022 URINA LYSIS COMPL ETE, IRIS white blood cells 0-8 /i??h pfi?? 0-[address] [facility] (Lab) [address] [place], [address], 04/12/2022 19:35:57 04/12/2004/12/2022 URINA LYSIS COMPL ETE, IRIS red blood cells 0-4 /i??h pfi?? 0-[address] [facility] (Lab) [address] [facility] [place], [address], 04/12/2022 19:35:57 04/12/2004/12/2022 URINA LYSIS COMPL ETE, IRIS bacteria none Not Available [facility] (Lab) [address] [place], [address], 04/12/2022 19:35:57 04/12/2004/12/2022 URINA LYSIS COMPL ETE, IRIS mucous occasi onal /i??l pfi?? abnormal Not Available [facility] (Lab) [address] [place], [address], 04/12/2022 19:35:57 04/12/2004/12/2022 URINA LYSIS COMPL ETE, IRIS squamous epithelial packed field /i??l pfi?? abnormal Not Available [facility] (Lab) [address] [place], [address], 04/12/2022 19:35:57 04/12/2004/12/2022 CBC W/O DIFFE RENTI AL white blood cells 6.2 x10'3 /uL 4.2-10 .[address] [facility] (Lab) [address] [place], [address], 04/12/2022 19:25:58 04/12/2004/12/2022 CBC W/O DIFFE RENTI AL red blood cells 4.38 x10'6 /uL 3.80-5 .[address] [facility] (Lab) [address] [place], [address], 04/12/2022 19:25:58 04/12/20 22 04/12/2022 CBC W/O DIFFE RENTI AL hemoglobin 13.3 g/dL 12.0-1 5.[address] [facility] (Lab) [address] [place], [address], 04/12/2022 19:25:58 04/12/2004/12/2022 CBC W/O DIFFE RENTI AL hematocrit 40.9 % 35.7-4 5.[address] [facility] (Lab) [address] [place], [address], 04/12/2022 19:25:58 04/12/2004/12/2022 CBC W/O DIFFE RENTI AL mean red cell volume 93.4 fL 82.0-9 9.[address] [facility] (Lab) [address] [place], [address], 04/12/2022 19:25:58 04/12/2004/12/2022 CBC W/O DIFFE RENTI AL mean red cell hemoglobin 30.4 pg 27.0-3 3.[address] [facility] (Lab) [address] [place], [address], 04/12/2022 19:25:58 04/12/2004/12/2022 CBC W/O DIFFE RENTI AL mean RBC HGB concentratio n 32.5 g/dL 31.0-3 6.[address] [facility] (Lab) [address] [place], [address], 04/12/2022 19:25:58 04/12/2004/12/2022 CBC W/O DIFFE RENTI AL red cell distribution width 12.4 % 11.8-1 5.[address] [facility] (Lab) [address] [place], [address], 04/12/2022 19:25:58 04/12/20 22 04/12/2022 CBC W/O DIFFE RENTI AL platelets 219 x10'3 /uL 150-40 [address] [facility] (Lab) [address] [place], [address], 04/12/2022 19:25:58 04/12/20 22 04/12/2022 CBC W/O DIFFE RENTI AL mean platelet volume 10.5 fL 9.0-12 .[address] [facility] (Lab) [address] [place], [address], 04/12/2022 19:25:58 03/28/20 22 03/28/2022 XR, chest , 2 view No observ ation record ed. [id number], [place], [address], 08/23/2022 14:50:37 04/09/20 23 04/09/2023 XR, wrist , 3 or more view No observ ation record ed. [address], [address], 04/27/2023 10:19:41 Result Notes None recorded. Problems Name Problem SNOMED Code Status Onset Date Resolution Date Notes Provider Name and Address Organization Details Recorded Time Constipat ion 80533557 Active Not Available [facility] 3 14:47:20 Pain in pelvis 06617020 Completed Not Available [facility] 3 14:47:20 Hypothyro idism 59442549 Active Not Available [facility] 3 14:47:20 Eczema 09982557 Active Not Available [facility] 3 14:47:20 Cyst of ovary 13374287 Completed Not Available [facility] 3 14:47:20 Pain of left wrist 87443795184 9102 Active 2022 SHAQUILLE Rain [address] [facility], [place], [address] , [employer] [facility] 3 09:15:41 Pain of left ankle joint 66993695977 479690 Active 2023 HELEN Sotelo [address], [place] [address], [place], [address] , [employer] [facility] 4 08:39:41 Vitamin D deficienc y 60443651 Active 2023 HELEN Suarez [address], [place] [address], [place], [address] , [employer] [facility] 4 09:45:58 Chronic renal failure 45157555 Active 2023 HELEN Suarez [address], [place] [address], [place], [address] , [employer] [facility] 4 09:46:23 Abnormal blood test 84875618557 9102 Active 2023 HELEN Suarez [address], [place] [address], [place], [address] , [employer] [facility] 4 09:46:56 Problem Notes None recorded. Medical Equipment None Reported. Allergies No known drug allergies Medications Name Sig Start Date Stop Date Status Note LastModified by Organization Details LastModified Time amoxicillin 500 mg capsule Take 1 capsule every 12 hours by oral route for 5 days. 04/05 completed Not Available Not Available Not Available Miralax 17 gram/dose oral powder Take 17 g every day by oral route as needed. 02/22 completed Not Available Not Available Not Available betamethaso ne valerate 0.1 % topical ointment 02/03 completed Not Available Not Available Not Available Colace 100 mg capsule Take 1 capsule every day by oral route as needed. 02/22 completed Not Available Not Available Not Available prednisone 10 mg tablet active Not Available Not Available Not Available ibuprofen 800 mg tablet 04/05 completed Not Available Not Available Not Available fluconazole 150 mg tablet active Not Available Not Available Not Available benzonatate 200 mg capsule Take 1 capsule 3 times a day by oral route as needed for 10 days. 12/14 completed Not Available Not Available Not Available hydrocodone 5 mg-acetamin ophen 325 mg tablet TK 1 TO 2 TS PO Q 4 TO 6 H PRN P 02/22 completed Not Available Not Available Not Available phenazopyri dine 200 mg tablet 04/05 completed Not Available Not Available Not Available metronidazo le 0.75 % (37.5 mg/5 gram) vaginal gel 11/14 completed Not Available Not Available Not Available pimecrolimu s 1 % topical cream APPLY TO THE AFFECTED AREA ON FACE TWICE DAILY FOR 30 DAY SUPPLY active Not Available Not Available No t Available clobetasol 0.05 % topical cream APPLY A THIN LAYER TO THE AFFECTED AREA(S) BY TOPICAL ROUTE 2 TIMES PER DAY 02/03 completed Not Available Not Available Not Available permethrin 5 % topical cream active Not Available Not Available Not Available Accu-Chek Softclix Lancets USE TO TEST QID AND PRN 04/10 completed Not Available Not Available Not Available triamcinolo ne acetonide 0.5 % topical ointment APPLY 1 GRAM TOPICALLY TO THE AFFECTED AREA TWICE DAILY active Not Available Not Available No t Available fluocinonid e 0.05 % topical ointment APPLY TOPICALLY TO HANDS TWICE DAILY. DO NOT USE ON FACE 02/03 completed Not Available Not Available Not Available acetaminoph en 300 mg-codeine 30 mg tablet TK 1 T PO Q 6 H PRN P 04/10 completed Not Available Not Available Not Available fexofenadin e 180 mg tablet TAKE 1 TABLET BY MOUTH EVERY DAY NEEDED. 04/05 completed Not Available Not Available Not Available ciprofloxac in 500 mg tablet TAKE 1 TABLET BY MOUTH TWICE DAILY 04/05 completed Not Available Not Available Not Available sulfamethox azole 800 mg-trimetho prim 160 mg tablet TAKE 1 TABLET BY MOUTH EVERY 12 HOURS 04/05 completed Not Available Not Available Not Available amoxicillin 500 mg tablet TAKE 1 TABLET BY MOUTH EVERY 8 HOURS 12/14 completed Not Available Not Available Not Available Kenalog 40 mg/mL suspension for injection Take 40 mg by injection route. 02/03 completed Not Available Not Available Not Available amoxicillin 875 mg tablet Take 1 tablet every 12 hours by oral route for 10 days. active Not Available Not Available No t Available triamcinolo ne acetonide 0.025 % topical cream Apply thin layer to affected area(s) twice daily 02/03 completed Not Available Not Available Not Available methotrexat e sodium 2.5 mg tablet TAKE 8 TABLETS BY MOUTH EVERY 7 DAYS 03/09 completed Not Available Not Available Not Available benzonatate 100 mg capsule TK 2 CS PO Q 8 H PRF CONGESTIO N. 04/05 completed Not Available Not Available Not Available levothyroxi ne 50 mcg tablet TK 1 T PO D 11/14 completed Not Available Not Available Not Available econazole nitrate 1 % topical cream 02/03 completed Not Available Not Available Not Available tacrolimus 0.1 % topical ointment APPLY EXTERNALL Y TO THE AFFECTED AREAS ON THE HANDS TWICE DAILY FOR 30 DAYS active Not Available Not Available No t Available oseltamivir 75 mg capsule TK 1 C PO BID 04/10 completed Not Available Not Available Not Available triamcinolo ne acetonide 0.1 % topical ointment APPLY TO HANDS TWICE DAILY 02/03 completed Not Available Not Available Not Available promethazin e 25 mg tablet 04/10 completed Not Available Not Available Not Available folic acid 1 mg tablet TAKE 1 TABLET BY MOUTH EVERY DAY 03/09 completed Not Available Not Available Not Available mupirocin 2 % topical ointment APPLY AA BID PRN 02/22 completed Not Available Not Available Not Available ergocalcife rol (vitamin D2) 1,250 mcg (50,000 unit) capsule TAKE 1 CAPSULE BY MOUTH EVERY WEEK active Not Available Not Available No t Available methylpredn isolone 4 mg tablets in a dose pack FPD active Not Available Not Available Not Available albuterol sulfate HFA 90 mcg/actuati on aerosol inhaler INHALE 2 PUFFS BY MOUTH EVERY 4 HOURS NEEDED 02/03 completed Not Available Not Available Not Available betamethaso ne dipropionat e 0.05 % topical ointment APPLY TO HANDS BID 02/03 completed Not Available Not Available Not Available intrauterin e device (IUD) Take by intrauter ine route. active Not Available Not Available No t Available neomycin 3.5 mg-polymyxi n 10,000 unit-hydroc ort 10 mg/mL eye drop,susp INSTILL 1 DROP INTO AFFECTED EYE(S) BY OPHTHALMI C ROUTE EVERY 4 HOURS WHILE AWAKE 05/15 completed Not Available Not Available Not Available fluticasone propionate 50 mcg/actuati on nasal spray,suspe nsion [place] 1 spray every day by intranasa l route. active Not Available Not Available No t Available loratadine 10 mg tablet 02/22 completed Not Available Not Available Not Available naproxen 500 mg tablet active Not Available Not Available Not Available nitrofurant oin monohydrate /macrocryst als 100 mg capsule TAKE 1 CAPSULE BY MOUTH TWICE DAILY FOR 5 DAYS 02/03 completed Not Available Not Available Not Available levothyroxi ne 25 mcg capsule Take 1 capsule twice a day by oral route. 2014 active Not Available Not Available Not Avai lable HydroSkin 1 % lotion LISA TO FACE AND NECK BID PRN WHEN RASH OCCURS 02/22 completed Not Available Not Available Not Available PreviDent 5000 Enamel Protect 1.1 %-5 % dental paste 02/03 completed Not Available Not Available Not Available Accu-Chek Delai Plus test strips TEST QID PRN 04/10 completed Not Available Not Available Not Available Accu-Chek FastClix Lancing Device USE TO TEST 4 TIMES DAILY AND PRN active Not Available Not Available No t Available Accu-Chek Delia Plus Meter FPD 04/10 completed Not Available Not Available Not Available Xulane 150 mcg-35 mcg/24 hr transdermal patch UNW AND LISA 1 PA TO SKIN Q WEEK 11/14 completed Not Available Not Available Not Available Fluvirin 1334-9185 45 mcg (15 mcg x 3)/0.5 mL intramuscul ar suspension ADM 0.5ML IM UTD 06/29 completed Not Available Not Available Not Available Dupixent 300 mg/2 mL subcutaneou s pen injector active Not Available Not Available Not Available Vitals Date Recorded Body height Body mass index (BMI) Body weight Body temperature Heart rate Oxygen saturation Oxygen saturation in Arterial blood by Pulse oximetry Systolic And Diastolic Provider Name and Address Organization Details Last Updated DateTime 4 152.4 cm 26.2 kg/m2 13249.3 8 g 97.3 [degF] 68 /min 98 % 98 % 104/68 mm[Hg] Rachael Noe RN [facility] [employer] [facility] 4 08:33:06 Date Recorded Body height Body mass index (BMI) Body weight Body temperature Heart rate Oxygen saturation Oxygen saturation in Arterial blood by Pulse oximetry Systolic And Diastolic Provider Name and Address Organization Details Last Updated DateTime 3 152.4 cm 27 kg/m2 16608.7 5 g 98.1 [degF] 72 /min 95 % 95 % 108/68 mm[Hg] Precious Landis RN [facility] 3 08:50:01 Date Recorded Body height Body mass index (BMI) Body weight Body temperature Heart rate Oxygen saturation Oxygen saturation in Arterial blood by Pulse oximetry Systolic And Diastolic Provider Name and Address Organization Details Last Updated DateTime 4 152.4 cm 26.8 kg/m2 07494.1 5 g 98.2 [degF] 70 /min 98 % 98 % 106/70 mm[Hg] Rachael Noe RN [facility] [employer] [facility] 4 11:30:35 Date Recorded Body mass index (BMI) Body height Oxygen saturation Oxygen saturation in Arterial blood by Pulse oximetry Heart rate Body temperature Body weight Systolic And Diastolic Provider Name and Address Organization Details Last Updated DateTime 2 26 kg/m2 152.4 cm 97 % 97 % 63 /min 97.1 [degF] 46022.7 9 g 90/50 mm[Hg] Not Available [facility] 3 14:46:44 Social History Question Answer Notes LastModified by Organizat ion Details LastModified Time Tobacco Smoking Status Never Smoker Not Available [facility] 08/23/2022 14:44:24 Do You Have An Advance Directive? No [id number] Information not available 08/23/2022 What Is Your Level Of Caffeine Consumption? Occasional Information not available 12/14/2022 In The 14 Days Before Symptom Onset, Have You Had Close Contact With A Laboratory-confirm ed COVID-19 While That Case Was Ill? No [id number] Information not available 08/23/2022 In The 14 Days Before Symptom Onset, Have You Had Close Contact With A Person Who Is Under Investigation For COVID-19 While That Person Was Ill? No [id number] Information not available 08/23/2022 What Type Of Diet Are You Following? REGULAR [id number] Information not available 08/23/2022 Do You Have Any Dietary Restrictions? No [id number] Information not available 08/23/2022 Sex: Unknown Functional Status Question Answer Note LastModified by Organizat ion Details LastModified Time What is your level of alcohol consumption? None Information not available 12/14/2022 What is your exercise level? None [id number] Information not available 08/23/2022 Mental Status None recorded. Family History Relationship Description Onset Age of this Age Resolved Age Notes LastModified by Organization Details LastModified Time Mother Hypertensive disorder [id number] Not available 08/23/2022 14:44:28 Medical History No medical history recorded. Gynecological History Statement/Question Response Menses Monthly N Current Control Method BCPs Flow Light Desired Control Method BCPs Obstetrics History GPAL:G 5 P 3 0 2 3 Type Value Full Term 3 Spontaneous 2 Living 3 Total 5 Immunizations Vaccine Type Date Status Note Provider Nam e and Address Organization Details Recorded Time Tdap 04/30/2016 completed Not Available [facility] 08/23/2022 14:50:27 Influenza, split virus, quadrivalent, PF 05/08/2018 completed Not Available [facility] 3 14:50:27 Influenza, split virus, quadrivalent, PF 04/12/2022 completed Not Available [facility] 3 14:50:27 Influenza, split virus, quadrivalent, PF 04/05/2021 completed Not Available [facility] 3 14:50:27 Influenza, split virus, quadrivalent, PF 04/23/2020 completed Not Available [facility] 3 14:50:27 Influenza, split virus, trivalent, PF 07/21/2024 completed Lali Dong RN [facility], [place] - [facility] [employer] [facility] 07/21/2024 12:38:53 Past Encounters Encounter ID Performer Location Encounter Start Date Encounter Closed Date Diagnosis/Indication Diagnosis SNOMED-CT Code Diagnosis ICD10 Code Diagnosis Note [id number] Mila Bradley MD [facility] Primary [facility] [place] [address] [place] [address] 03/09/2021 00:00:00 03/09/2021 20:01:10 [id number] MATT Saunders [facility] Primary [facility] [place] [address] [place] [address] 04/05/2021 00:00:00 04/05/2021 10:26:15 [id number] Mila Bradley MD [facility] Primary [facility] [place] [address] [place] [address] 06/13/2021 00:00:00 06/13/2021 13:04:18 [id number] SHAQUILLE Rain [facility] Primary Care [place] [address] [place] [address] 03/28/2022 00:00:00 03/28/2022 19:08:25 [id number] Mila Bradley MD [facility] Primary Care [place] [address] [place] [address] 04/12/2022 00:00:00 04/12/2022 17:19:18 [id number] SHAQUILLE Rain [facility] Primary Care [place] [address] [place] [address] 12/14/2022 08:40:57 12/14/2022 10:53:21 Pain of left wrist [id number] M25.532 Recurrent, improved over the past couple of weeksWill send for xray of wrist to evaluate for bony injury. Suspect minor tendinosis /tendiniti s. Recommend RICE when symptomati c with otc pain relievers per package instructio ns. If sx persist, will refer to physical therapy. [id number] Mila Bradley MD [facility] Primary Care [place] [address] [place] [address] 09/18/2023 08:23:42 09/18/2023 11:52:19 Pain of left ankle joint [id number] M25.572 -noted pain to ankle since -f/u with chiropract or in april, no improvemen t-pain rated at 0/10, but can have random pains, no use of meds-notes occ swelling-R OM and strength seem to be intact-no numbness or tingling noted-xray ordered-PT ordered [id number] HELEN Suarez [facility] Primary Care [facility] [address] [facility] [address] [place] [address] 02/04/2024 11:24:59 02/04/2024 11:46:41 Adult health examination [id number] Z00.00 Z00.01 The patient was advised to continue a healthy diet and exercise regularly. Labs drawn in office.Dis cussed healthy diet and exercise. Hypothyroidism [id number] E03.9 [id number] HELEN Suarez [facility] Primary Care [address] [place] [address] 07/21/2024 12:00:27 07/21/2024 12:20:22 Health Concerns Section Related Observation LastModified by Organization Detai ls LastModified Time None Recorded Concern Status LastModified by Organization Details LastModified Time None Recorded Advance Directives Directive N: Payers Insurance Date Sequence Insurance Name Policy Number Policy Weinberg Covered Member ID Weinberg Member ID Guarantor Name 07/21/2024 1 [facility] (MEDICAID HMO) [id number] Marques Olivares [id number] Marques Olivares Notes Date Note Type Note Provider Name and Address Organization Details Recorded Time 12/14/2022 text/html 1. Pt in office with father for problem visit with c/o having pain in left wrist a couple of weeks ago. States that she was having trouble moving it, but couldn't tell if it was swollen. States she isn't able to do push ups b/c of it. States it was achy. States better now, but wants to get it checked out. States she didn't try taking any otc meds for it. Alex Chamberlain, SHA[place] [address] [facility], [facility] [address], [place], [address], [place] [facility] 12/14/2022 11:19:27 09/18/2023 text/html pt is here for left ankle pain HELEN Sotelo [address], [place] [address], [place], [address], [facility] 09/18/2023 16:22:03 02/04/2024 text/html Patient is a 38 year old female that presents to the office for annual wellness. Patient has no medical concerns at this time including chest pain and shortness of breath, nausea vomiting and diarrhea. Patient does not take any daily medications. Patient reports diet and exercise is good. labs-orderedWWE- sees ORDNANCE OFFICER-up to dateflu-UTDcovid - [id number] HELEN Suarez [address], [facility] [address], [place], [address], [facility] 02/04/2024 11:44:38 OBGyn Episode No OBEpisode recorded.
--- OUTSIDE RECORDS SUMMARY | 2024-12-29 10:23 | XMS_ITS | Encounter Summary ---
Author Organization [facility] Address [address] [facility] [place] [address] Care Team Providers Care Director Of Public Relations Name Role Phone Alex Chamberlain Primary Care Provider Encounter Details Date Type Department Care Team (Late st Contact Info) Description 04/02/2020 Telephone [facility] [address] [place] [address] Lakeshia Herrera PA [address] [facility] [address]L [place] [address] Social History Tobacco Use Types Packs/Day Years Used Date Smoking Tobacco: Never Smokeless Tobacco: Never Alcohol Use Standard Drinks/Week Comments No 0 (1 standard drink = 0.6 oz pur e alcohol) Comments Unknown Sex and Gender Information Value Date Recorded Sex Assigned at Not on file Legal Sex Female 3:01 PM CDT Gender Identity Not on file Sexual Orientation Not on file documented as of this encounter Plan of Treatment Not on file documented as of this encounter Visit Diagnoses Not on filedocumented in this encounter Care Teams Director Of Public Relations Relationship Specialty Start Date End Date Alex Chamberlain APRN-CNP [address] [phone] PCP - General Nurse Practitioner Family 11/13/17 documented as of this encounter
--- OUTSIDE RECORDS SUMMARY | 2024-12-29 10:23 | XMS_ITS | Continuity of Care Document ---
Author Name [facility] Address [address] [place] [address] Organization [facility] Care Team Providers Care Sugar Controller Name Role Phone [facility] Unavailable Unavailable Problems Problem Status Onset Date Problem Type Date of Resolution Comments Source Other Threatened Labor, Antepartum Condition or Complication Active Diagnosis Other Specified Complications of , Antepartum Condition or Complication Active Diagnosis Unspecified Hemorrhage in Early , Antepartum Condition or Complication Active Diagnosis Rash and Other Nonspecific Skin Eruption Active Diagnosis Goiter, Unspecified Active Diagnosis Post Term , Antepartum Condition or Complication Active Diagnosis Encounters Location Location Details Encounter Type Encounter Number Reason For Visit Attending Provider ADM Date DC Date Status Source ANNALISA ANNALISA [facility] [id number] van/f-u scan/minerva Virk 04/24 10:14 :59 Cancel [facility] OBP OBP [facility] [id number] WWE Madiha Armas Cancel [facility] JOÉS JOSÉ OUTPATIENT [id number] E F/U Precious Touza Cancel [facility] JOSÉ JOSÉ OUTPATIENT [id number] E F/U 6 WKS Precious Touza 06/16 13:34 :37 Cancel [facility] POC POC NO TECHBILL [id number] 08/25 NPC FILED 08/11- Varun Kincaid 08/07 09:47 :52 [facility] [id number] [place]/MICH MEJIA@[id number] Janny Mcpherson 04/03 11:29 :03 [facility] [place] [facility] JOS[facility] JOSÉ OUTPATIENT [id number] E 20 WKS PG/SRIDEVI Stokes 03/27 11:27 :14 Cancel [facility] OBP OBP [facility] [id number] diabetic teaching/f maria ines 06/06 10:33 :07 Cancel [facility] ANNALISA [facility]SON [facility] [id number] bpp/nst/fl oyd 07/28 11:03 :04 Cancel [facility] ANNALISA J[facility]SON [facility] [id number] bpp/nst/fl oyd 07/28 11:03 :08 Cancel [facility] DIAGNOSTIC TESTING [id number] 478.9;TSH /JW pc messg Liam Conde Cancel [facility] OUTPATIENT [id number] 2-3M F/U Liam Conde Cancel [facility] OUTPATIENT [id number] 2-3M F/U Liam Conde Cancel [facility]
--- OUTSIDE RECORDS SUMMARY | 2024-12-29 10:23 | XMS_ITS | Clinical Summary ---
Author Organization [facility] Address [address] [facility] [place] [address] Care Team Providers Care Creative Guru Name Role Phone Alex Chamberlain CABLE FORMER-BLOWING WEASAND Primary Care Provider Source Comments [facility],non-owned Affiliates and Associated Physician Practices is amultiple site organization consisting of ambulatory clinics and hospital sitesin [place], [place], [place] and [place]. This disclosure is being madepursuant to the Care Everywhere program and may not contain all information available regarding this patient. Last updated 18.[facility] Allergies No known active allergies Medications * Be aware that medications may not be up to date on this document. Alwaysverify current medications with the patient. etonogestrel (NEXPLANON) 68 MG implant 68 (sixty eight) mg by Subdermal route as directed Active econazole nitrate (SPECTAZOLE) 1 % creamIndicatio ns:Tinea Pedis Apply to feet 1-2 times daily for 4 weeks , then apply once a week . 30 days supply. 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 30 days supply. Do not use on face 60 g 11 1 Active Additional Information Patient not taking.Reported on 07/28/2024 albuterol HFA (Proventil; Ventolin; Proair) 108 (90 Base) MCG/ACT inhaler Inhale 2 (two) puffs by mouth every 4 hours as needed 2 Active benzonatate (Tessalon) 200 MG capsule TAKE 1 CAPSULE BY MOUTH THREE TIMES DAILY FOR 10 DAYS NEEDED 2 Active fluticasone propionate (Flonase) 50 MCG/ACT nasal spray [place] 1 spray every day by intranasal route. Active PreviDent 5000 Enamel Protect 1.1-5 % 3 Active dupilumab (Dupixent) 300 MG/2ML prefilled penIndications :Other allergic contact dermatitis,Oth er atopic dermatitis Inject 4 mL subcutaneously once for 1 dose 4 mL 4 Active dupilumab (Dupixent) 300 MG/2ML prefilled penIndications :Other allergic contact dermatitis,Oth er atopic dermatitis Inject 2 mL subcutaneously every 14 days 4 mL 11 4 025 Active dupilumab (Dupixent) 300 MG/2ML prefilled pen INJECT 2 ML SUBCUTANEOUSLY EVERY 14 DAYS 4 mL 11 4 Active vitamin D, ergocalciferol , (Drisdol) 1.25 MG (74825 UT) capsule Take 1 (one) capsule by mouth every 7 days 4 Active tacrolimus (Protopic) 0.1 % ointmentIndica tions:Other allergic contact dermatitis Apply to affected areas on the hands two times daily. 30 days supply. PERRIGO or FOUGERA BRAND ONLY as patient has allergic contact dermatitis 100 g 11 5 Active triamcinolone acetonide (Kenalog) 0.1 % ointmentIndica tions:Other allergic contact dermatitis Apply to hands twice daily. 30 days supply. Dispense taro, padagis, fougera, or perrigo brands only. 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 History of section 11/25/2015 Abnormal finding on screening of franklin wetzel 11/25/2015 Resolved Problems Problem Noted Date Diagnosed Date Resolved Date Constipation 02/19/2019 03/19/2019 Immunizations Immunization Administration Dates Next Due INFLUENZA VACCINE 04/29/2019 TDAP (7yrs+) 03/14/2016 Family History Medical History Relation Name Comments None Known Brother None Known Father None Known Maternal Aunt None Known Maternal Grandfather None Known Maternal Grandmother None Known Maternal Uncle None Known Mother Eczema Other daughter None Known Paternal Aunt None Known Paternal Grandfather None Known Paternal Grandmother None Known Paternal Uncle None Known Sister Asthma Neg Hx CVA Neg Hx Cancer - Breast Neg Hx Cancer - Other Neg Hx Cancer - Skin, Melanoma Neg Hx Cancer - Skin, Non Melanoma Neg Hx Hemophilia Neg Hx Psoriasis Neg Hx Relation Name Status Comments Brother Father Maternal Aunt Maternal Grandfather Maternal Grandmother Maternal Uncle Mother Other daughter Alive Paternal Aunt Paternal Grandfather Paternal Grandmother Paternal Uncle Sister Social History Tobacco Use Types Packs/Day Years Used Date Smoking Tobacco: Never Smokeless Tobacco: Never Tobacco Cessation:Counseling Given: Not Answered Alcohol Use Standard Drinks/Week Comments No 0 (1 standard drink = 0.6 oz pur e alcohol) Comments No Sex and Gender Information Value Date Recorded Sex Assigned at Not on file Legal Sex Female 3:01 PM CDT Gender Identity Not on file Sexual Orientation Not on file Last Filed Vital Signs Vital Sign Reading Time Taken Comments Blood Pressure 100/62 12/14/2017 9:36 AM CDT Pulse 85 12/14/2017 9:36 AM CDT Temperature 36.6 C (97.8 F) 12/14/2017 9:36 AM CDT Respiratory Rate 16 12/14/2017 9:36 AM CDT Oxygen Saturation 97% 12/14/2017 9:36 AM CDT Inhaled Oxygen Concentration - - Weight 56.7 kg (125 lb) 12/14/2017 9:36 AM CDT Height 152.4 cm (5') 12/14/2017 9:36 AM CDT Body Mass Index 24.41 12/14/2017 9:36 AM CDT Plan of Treatment Health Maintenance Due Date Last Done Comments LIPID TESTING 1984 MAMMOGRAM 1984 HIV SCREENING 1999 HEPATITIS B VACCINE (1 of 3 - 19+ 3-dose series) 2003 COVID-19 VACCINE ( - season) 2024 DEPRESSION SCREENING 2024 DTAP/TDAP/TD VACCINES (2 - Td or Tdap) 03/14/2026 03/14/2016 PAP SMEAR 10/07/2026 10/08/2023, 09/23, 10/02/2022, Additional history exists ZOSTER VACCINE (1 of 2) 2034 HEPATITIS C SCREENING Completed 06/07/2019 INFLUENZA VACCINE Completed 07/21/2024, , 04/05/2021, Additional history exists HIB VACCINE Aged Out No longer eligi ble based on patient's age to complete this topic HPV VACCINE Aged Out No longer eligi ble based on patient's age to complete this topic MENINGOCOCCAL (Group B) VACCINE SHARED DECISION-MAKING Aged Out No longer eligible based on patient's age to complete this topic MENINGOCOCCAL GROUPS A/C/Y/W VACCINE Aged Out No longer eligible based on patient's age to complete this topic PNEUMOCOCCAL VACCINE Aged Out No long er eligible based on patient's age to complete this topic Procedures Procedure Name Priority Date/Time Associated Diagnosis Comments HEPATITIS SCREEN ACUTE Routine 06/07/2019 7:57 AM REPAIRER TYPEWRITER Medication management from Last 3 Months or Most Recently Relevant to Health Maintenance Results * HEPATITIS SCREEN ACUTE (06/07/2019 7:57 AM REPAIRER TYPEWRITER) Hepatitis A Virus Antibody IgM NON-REACTI VE NON-REACT [facility] Comment: For additional information, please refer to http://education.Synfora.PerBlue/faq/XDX333 (This link is being provided for informational/ educational purposes only.) Hepatitis B Virus Surface Antigen NON-REACTI VE NON-REACT [facility] Hepatitis B Core Virus Antibody IgM NON-REACTI VE NON-REACT [facility] Hepatitis C Antibody NON-REACTI VE NON-REACT [facility] Signal to Cut-Off 0.02 <1.00 [facility] Comment: HCV antibody was non-reactive. There is no laboratory evidence of HCV infection. In most cases, no further action is required. However, if recent HCV exposure is suspected, a test for HCV RNA (test code 61515) is suggested. For additional information please refer to http://education.Flit/faq/XNF77b8 (This link is being provided for informational/ educational purposes only.) Test Performed at: [facility] [address] [facility] [place] [address] TIMA PETIT DO,MPH Blood BLOOD SPECIMEN / Unknown 06/07/2019 7:57 AM REPAIRER TYPEWRITER 06/07/2019 7:58 AM REPAIRER TYPEWRITER us [facility] - CHEMISTRY ORDERABLES F inal Result [facility] [address] [place] [address] from Last 3 Months or Most Recently Relevant to Health Maintenance Insurance [facility] Care Teams Creative Guru Relationship Specialty Start Date End Date Alex Chamberlain, CABLE FORMER-BLOWING WEASAND [address] [place] [address] [place] [address] PCP - General Nurse Practitioner Family 11/13/17
== END 2024-12-29 10:12 | disposition home or self-care (01) ==
LOC: ANHIMG 10:13
PROVIDERS: PCP Nurse Practitioner Family; Visit Provider Nurse Practitioner
DX: Z12.31 Encounter for screening mammogram for malignant neoplasm of breast (principal)
CPT/HCPCS: 77063; 77067

== ENCOUNTER 2025-03-09 09:37 | Emergency (ER) | payer OTHER, SELFPAY ==
[2025-03-09] VITALS (9 sets, daily range): BP systolic 95–115; BP diastolic 61–74; PULSE 56–80; RESP 12–23; TEMP 36.7; O2SAT 100
--- NOTE | ~2025-03-09 | XR_ITS ---
EXAMINATION: XR chest 1V portable COMPARISON: No comparisons available. HISTORY: episode of sob FINDINGS: The lungs are clear, no effusion. No pneumothorax. Heart is normal size. Mediastinal and hilar contours are within normal limits. Bony thorax no acute abnormality. Miscellaneous: None Impression: No acute cardiopulmonary abnormality. Reviewed, dictated and finalized at location A. Impression: No acute cardiopulmonary abnormality.
--- NOTE | 2025-03-09 09:41 | ECG_ITS ---
Test Date: 2025-03-09 09:45:02 Measurements Intervals [place] Rate: 77 P: 58 KS: 134 QRS: 89 QRSD: 85 T: 66 QT: 374 QTc: 424 Interpretive Statements SINUS RHYTHM POSSIBLE RIGHT VENTRICULAR CONDUCTION DELAY [RSR (QR) IN V1/V2] BORDERLINE ECG No previous ECG available for comparison Electronically Signed On 03-09-2025 11:16:42 CDT by Arian Cyr M.D.
--- OUTSIDE RECORDS SUMMARY | 2025-03-09 10:28 | XMS_ITS | Clinical Summary ---
Author Organization [facility] Address [address] [facility] [place] [address] Care Team Providers Care Biological Aide Name Role Phone Alex Chamberlain LIME KILN AND RECAUSTICIZING OPERATOR-ABSTRACT CLERK Primary Care Provider Source Comments [facility],non-owned Affiliates and Associated Physician Practices is amultiple site organization consisting of ambulatory clinics and hospital sitesin [place], [place], [place] and [place]. This disclosure is being madepursuant to the Care Everywhere program and may not contain all information available regarding this patient. Last updated 18.[facility] Allergies No known active allergies Medications * [...] fluticasone propionate (Flonase) 50 MCG/ACT nasal spray [place] 1 spray every day by intranasal route. [...] vitamin D, ergocalciferol , (Drisdol) 1.25 MG (08289 UT) capsule Take 1 (one) capsule by [...] of 3 - 19+ 3-dose series) 2003 HPV VACCINE (1 - 3-dose SCDM series) 2011 DEPRESSION SCREENING 2024 COVID-19 VACCINE (1 - 2023- season) 2025 INFLUENZA VACCINE (#1) 2025 , 04/12/2022, 04/05/2021, Additional history exists DTAP/TDAP/TD VACCINES (2 - Td or Tdap) 03/14/2026 03/14/2016 PAP SMEAR 10/07/2026 10/08/2023, 09/23, 10/02/2022, Additional history exists ZOSTER VACCINE (1 of 2) 2034 HEPATITIS C SCREENING Completed 06/07/2019 HIB VACCINE Aged Out No longer eligi [...] HEPATITIS SCREEN ACUTE Routine 06/07/2019 7:57 AM COMMERCIAL LENDING VICE PRESIDENT Medication management from Last 3 Months or Most Recently Relevant to Health Maintenance Results * HEPATITIS SCREEN ACUTE (06/07/2019 7:57 AM COMMERCIAL LENDING VICE PRESIDENT) Hepatitis A Virus Antibody IgM NON-REACTI VE NON-REACT [facility] Comment: For additional information, please refer to http://education.Fractal OnCall Solutions.Bosse Tools/faq/UAL025 (This link is being provided for informational/ [...] a test for HCV RNA (test code 80469) is suggested. For additional information please refer to http://education.Vestmark/faq/EQG34h4 (This link is being provided for informational/ educational purposes only.) Test Performed at: [facility] [address] [place] [address] TIMA PETIT DO,MPH Blood BLOOD SPECIMEN / Unknown 06/07/2019 7:57 AM COMMERCIAL LENDING VICE PRESIDENT 06/07/2019 7:58 AM COMMERCIAL LENDING VICE PRESIDENT us Lakesh[facility] - CHEMISTRY ORDERABLES F inal Result Performing Organization Address City/State/[facility] Co de Phone Number [facility] [address] [place] [address] from Last 3 Months or Most Recently Relevant to Health Maintenance Insurance [facility] Care Teams Biological Aide Relationship Specialty Start Date End Date Alex Chamberlain, LIME KILN AND RECAUSTICIZING OPERATOR-ABSTRACT CLERK [address] [place] [id number] PCP - General Nurse Practitioner Family 11/13/17
--- OUTSIDE RECORDS SUMMARY | 2025-03-09 10:28 | XMS_ITS | Encounter Summary ---
Author Organization [facility] Address [address] [place] [address] Care Team Providers Care Disbursing Officer Name Role Phone Alex Chamberlain Primary Care Provider Encounter Details Date Type Department Care Team (Late st Contact Info) Description 04/02/2020 Telephone [facility] [address] [place] [address] Lakeshia Herrera PA [address] [facility] [address]L [place] [address] Social History Tobacco Use Types Packs/Day Years [...] on filedocumented in this encounter Care Teams Disbursing Officer Relationship Specialty Start Date End Date Alex Chamberlain APRN-CNP [address] [address] [phone] PCP - General Nurse Practitioner Family 11/13/17 documented as of this encounter
--- OUTSIDE RECORDS SUMMARY | 2025-03-09 10:28 | XMS_ITS | Encounter Summary ---
Author Organization [facility] Address [address] [place] [address] Care Team Providers Care Legal Records Clerk Name Role Phone ChamberlainAlex PROGRAMMING ENGINEER-LAUNDRY OR DRY CLEANERS COUNTER CLERK Primary Care Provider Reason for Visit * Reason Onset Date Comments Nurse Only 04/24/2024 Encounter Details Date Type Department Care Team (Late st Contact Info) Description 04/24/2024 Telephone [facility] - Dermatology [address] [place] [address], [place] [phone] Silvia Quezada MD [facility] [place] [address] Nurse Only Social History Tobacco [...] of Dupixent and transfer of script to [facility] Specialty pharmacy. Patient has already received a phone call from [facility] regarding her prescription. Ana Cyr- Pharmacy Coloring Checker (Dermatology) OGLYCERIN DISTRIBUTOR * Ana Cyr - 04/25/2024 2:44 PM CDT Medication Prior Authorization: Medication: Dupixent 300mg/2ml pen Status: Approved 04/23/24 through 04/23/25 Submitted via: eNovance Insurance: [employer] [place] (p: [phone]) Case/Reference number: [id number] RX Card Billing Info: BIN: [id number] PCN: ADV GROUP: [id number] ID: [id number] [place] approval notice uploaded to media tab. Routed approval details to [facility]. Ana Cyr- Pharmacy Coloring Checker (Dermatology) documented in this encounter Miscellaneous Notes * Telephone Encounter - Bebe Hernandez - 04/24/2024 9:35 AM CDT Pt would like to speak with provider regarding medication. She is stating that she has followed thesteps that provider instructed to clearing her eczema and its has got worst. She also is asking if their is an update on injection medication from insurance. CB# [phone] documented in this encounter Plan of Treatment Not on file documented as of this encounter Visit Diagnoses Not on filedocumented in this encounter Care Teams Legal Records Clerk Relationship Specialty Start Date End Date Alex Chamberlain, PROGRAMMING ENGINEER-LAUNDRY OR DRY CLEANERS COUNTER CLERK [address] [place] [address] [place] [address] PCP - General Nurse Practitioner Family 11/13/17 documented as of this encounter
--- OUTSIDE RECORDS SUMMARY | 2025-03-09 10:28 | XMS_ITS | Clinical Summary ---
Author Organization [facility] Address [address] [place] [address] Phone Care Team Providers Care Envelope Patternmaker Name Role Phone Alex Chamberlain APRN, FIELD CROP FARMWORKER Primary Care Provider Deepali Mcgovern MD Unavailable [...] Comments Blood Pressure 105/44 07/10/2024 10:10 AM INSPECTOR [employer]ODUCTS Pulse 69 07/10/2024 10:10 AM INSPECTOR [employer] Temperature 36.3 C (97.4 F) 07/10/2024 10:10 AM INSPECTOR [employer] Respiratory Rate 16 07/10/2024 10:10 AM INSPECTOR [employer]ODU[employer] Oxygen Saturation 100% 07/10/2024 10:10 AM INSPECTOR [employer] Inhaled Oxygen Concentration - - Weight 60.3 kg (133 lb) 07/10/2024 9:30 AM INSPECTOR [employer] Height 152.4 cm (5') 07/10/2024 9:30 AM INSPECTOR [employer]ODU[employer] Body Mass Index 25.97 07/10/2024 9:30 AM INSPECTOR [employer]ODU[employer] Plan of Treatment Upcoming Encounters Date Type Department Care Team (Late st Contact Info) Description 04/27/2025 10:00 AM INSPECTOR [employer] PRODUCTS Office Visit [facility] - Endocrinology - [place] [address] [place] [phone] Deepali Mcgovern MD [address] [address] Health Maintenance Due Date Last Done Comments Mammogram 1984 Hepatitis B Immunization (1 of 3 - 19+ 3-dose series) 2003 Pap Smear 2005 Human Papillomavirus (HPV) Immunization (1 - 3-dose SCDM series) 2011 Cervical Cancer Screening (CCS) 2014 HPV/Cotest 2014 Discussion re Starting/Frequency of Mammograms 2024 Influenza Immunization (#1) 02/23/202503/25, 04/05/2021, 04/23/2020, Additional history exists SARS-COV-2 Immunization ( season) 2025 07/22/2021, 11/14/2020, 10/11/2020 Td Immunization Every 10 Years (Adults With [...] age to complete this topic Insurance [place]ICAID [place] Care Teams Envelope Patternmaker Relationship Specialty Start Date End Date Alex Chamberlain, BUILDING REPAIR MAINTENANCE SUPERVISOR, FIELD CROP FARMWORKER [address] [place] [address] PCP - General Certified Nurse Practitioner 02/19/19 Deepali Mcgovern MD [address] [phone] Consulting Physician Endocrinology 04/14/22
--- NOTE | 2025-03-09 11:35 | ED_ITS ---
HPI - Anxiety General Chief Complaint: Anxiety Stated Complaint: SOB Time Seen by Provider: 03/09/25 11:00 Source: patient Mode of arrival: ambulatory Limitations: no limitations History of Present Illness HPI narrative: Patient reports that she feels like she started to have what might be panic attacks and has been feeling anxious on and off over the past 1 week. Prior to this this has never happened before and she does not carry a diagnosis of anxiety and is not on medications or therapy for this. Her shortness of breath started on Sunday and although she had initially attributed it did to panic attacks, this seemed to last the entire day. Her legs felt weak but not known. She will start feeling lightheaded and experiences a pleuritic chest pain. Patient reports when one of the episodes happened her hands got numb and tight. She denies any edema, fevers, or chills. Nonsmoker. 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 During one episode she felt claustrophobic. No history of DVT or PE. No recent surgery or trauma. Patient states she would experience symptoms slightly like this before perhaps 2 to 3 times a year but in general they would only last 30 minutes. No recent travel. Uses nexplanon for control. Denies any helena chest pain although she will experience a tightness. She does endorse that she has had increasing stress and so had attributed it to that. No cough. When the episodes, she feels like she cannot take a full deep breath. 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 HEAD: Normocephalic, atraumatic. EYES: Non injected, non icteric ENT: Nares clear, no rhinorrhea or epistaxis. Gross auditory acuity intact. NECK: Supple. No meningismus. CHEST: Speaking in full sentences. No respiratory distress. Lungs clear to auscultation bilaterally without appreciable wheezes, crackles, focal consolidation. No bronchospasm. HEART: Regular rate and rhythm. . ABDOMEN: Soft, nondistended. No rigidity or guarding. Not peritoneal EXTREMITIES: Normal range of motion. No lower extremity edema. SKIN: Warm, dry, no rash. NEURO: No focal deficits. Alert and oriented. Answering questions. Following commands. Normal speech without aphasia or dysarthria. PSYCH: Normal mood and affect. Course Vital Signs Vital signs: Vital Signs Temperature 98.1 F 03/09/25 09:42 Pulse Rate 80 03/09/25 09:42 Respiratory Rate 20 03/09/25 09:42 Blood Pressure 115/74 03/09/25 09:42 Pulse Oximetry 100 03/09/25 09:42 Oxygen Delivery Room Air 03/09/25 09:42 Temperature 98.1 F 03/09/25 09:42 Pulse Rate 69 03/09/25 14:15 Respiratory Rate 23 H 03/09/25 14:15 Blood Pressure 108/67 03/09/25 14:01 Pulse Oximetry 100 03/09/25 14:15 Oxygen Delivery Room Air 03/09/25 10:49 MDM - Anxiety MDM Narrative Medical decision making narrative: Patient presents with episodes that she thought were perhaps panic attacks. She will experience episodes where she feels lightheaded and has pleuritic chest tightness, feeling like she cannot take a full deep breath. Her shortness of breath started on Sunday but seemed to last the entire day which she found to be unusual. She felt claustrophobic. No official diagnosis of anxiety or panic attacks and is not on medication or therapy for this. She notes she had had similar symptoms like this before perhaps 2 to 3 times a year but they would only last less than 30 minutes and so when her symptoms were occuring more frequently and for longer duration, she felt she should be evaluated. In the emergency department they are afebrile with vital signs within normal limits. Patient educated on the carpopedal spasm phenomenon that occurs with hyperventilation but that will pursue further work up because some features do not sound consistent with a simple panic attack. Dimer normal. Will not pursue further evaluation for PE. CBC generally unremarkable except for mild abnormalities on the differential. Notably, no leukocytosis or anemia. Chemistry generally unremarkable except for an elevated bilirubin. When fractionated, primarily indirect. Ddx indirect hyperbilirubinemia Over production of bilirubin (hemolytic anemia), reduced uptake (cirrhosis or congestive hepatopathy), impaired conjugation, biliary obstruction, hereditary disease (Gilbert syndrome, Rigoberto-Hasmukh syndrome, Crigler-Celsa syndrome), medication side effect (allopurinol, anabolic steroids, antibiotics, antimalarials, etc.) Identified Cristel is or clear etiology for her symptoms. She is prescribed acetaminophen for chest tightness and encouraged to follow up outpatient. Differential Diagnosis Differential diagnosis: Likely hyperventilation, panic disorder, acute anxiety and other (ACS, pulmonary embolism, ) Lab Data Attestation: I reviewed the patient's lab results. 03/09/25 12:12 03/09/25 12:12 Labs: Lab Results 03/09/25 Range/Units 12:12 WBC 6.1 (4.5-10.0) K/mm3 RBC 4.64 (4.2-5.4) M/mm3 Hgb 13.9 (12.0-15.0) g/dL Hct 39.2 (37.0-47.0) % MCV 84.5 (80-100) fl MCH 30.0 (26-34) pg MCHC 35.5 (32-36) g/dl RDW 12.2 (11.5-14.5) % Plt Count 303 (150-375) k/mm3 MPV 9.4 (7.4-10.4) fl Immature Gran % (Auto) 0.2 (0-0.5) % Neut % (Auto) 44.4 L (45.5-73.1) % Lymph % (Auto) 45.4 H (18.3-44.2) % [place] % (Auto) 7.9 (2.6-8.5) % Eos % (Auto) 1.3 (0-4.4) % Baso % (Auto) 0.8 (0.2-1.2) % Lymph # (Auto) 2.75 (0.9-3.2) K/mm3 [place] # (Auto) 0.5 (0.1-0.6) K/mm3 Eos # (Auto) 0.1 (0-0.3) K/mm3 Baso # (Auto) 0.1 (0.0-0.1) K/mm3 Abs Immat Gran (auto) 0.01 (0.00-0.031) K/mm3 Absolute Neuts (auto) 2.7 (1.3-6.7) K/mm3 Absolute Nucleated RBC 0.000 (0.0-0.012) K/mm3 Nucleated RBC % 0.0 (0.0-0.2) % D-Dimer < 0.27 (<0.48) ug/mL Sodium 135 L (137-145) mmol/L Potassium 3.5 (3.4-5.0) mmol/L Chloride 107 (98-107) mmol/L Carbon Dioxide 22 (22-30) mmol/L Anion Gap 6 (4-12) mmol/L BUN 13 (7-17) mg/dL Creatinine 0.63 L (0.7-1.0) mg/dL Estim Creat Clear Calc 76 ml/min Estimated GFR > 60 (59 - ) Glucose 81 (65-110) mg/dL Calcium 8.8 (8.4-10.2) mg/dL Magnesium 2.1 (1.6-2.3) mg/dL Total Bilirubin 1.9 H (0.2-1.3) mg/dL Direct Bilirubin 0.0 (0-0.3) mg/dL Indirect Bilirubin 1.7 H (0-1.1) mg/dL AST 25 (14-36) U/L ALT 16 (6-35) U/L Alkaline Phosphatase 53 (38-126) U/L Troponin I < 0.012 (0.000-0.034) ng/mL Total Protein 7.5 (6.3-8.2) g/dL Albumin 4.1 (3.5-5.1) g/dL Influenza A (RT-PCR) Negative (Negative) Influenza B (RT-PCR) Negative (Negative) RSV (RT-PCR) Negative (Negative) SARS-CoV-2 RNA (RT-PCR) Negative (Negative) Imaging Data Radiologist's impression: Impression: No acute cardiopulmonary abnormality. ECG Data EKG #1: Attestation: I personally reviewed and interpreted this ECG as follows: ECG completion date: 03/09/25 ECG completion time: 09:45 Interpretation: Normal sinus rhythm at a rate of 77 beats per minute. IL interval 134. QRS 85. QT/ QTC 374/424. Good R-wave progression across the precordial leads. No T-wave inversions. There is an RSR' are appearing and in V1 and V2 which may represent possible right ventricular conduction delay. Discharge Plan Discharge Clinical Impression: Shortness of breath, Hyperventilation, Chest tightness, Indirect hyperbilirubinemia Patient Disposition: Home Condition: Stable Instructions: Antibiotic Form, Hyperventilation (ED), Shortness of Breath (ED) Additional Instructions: No cause of your symptoms was identified on your workup which included labs, chest x-ray, EKG. I do recommend you follow-up with your primary care physician though. Your indirect bilirubin was slightly elevated and this could be looked into further though not felt to be related to your symptoms. Return to the emergency department with any new or worsening symptoms. Acetaminophen/Tylenol (maximum 3000 mg per day) is safe to take for pain relief. Patient Language: Persian Prescriptions: New acetaminophen 650 mg tablet extended release 650 mg PO Q8H PRN (Reason: pain) Qty: 30 0RF No Action clobetasol 0.05 % cream TOPICAL methotrexate sodium 2.5 mg tablet folic acid 1 mg tablet Follow-up/Referrals: [place],Rena Catalan NP [Primary Care Provider, Unknown] Stand Alone Forms: Work/School Release IP Time of Disposition: 14:17
[2025-03-09 12:21] LABS: Hematocrit 39.2 % (37.0-47.0); Hemoglobin 13.9 g/dL (12.0-15.0); Immature Granulocyte Percent A 0.2 % (0-0.5); Lymphocytes Absolute Auto 2.75 K/mm3 (0.9-3.2); Mean Corpuscular HGB Conc 35.5 g/dl (32-36); Mean Corpuscular Hemoglobin 30.0 pg (26-34); Mean Corpuscular Volume 84.5 fl (80-100); Nucleated Red Blood Cells Absolute Auto 0.000 K/mm3 (0.0-0.012); Nucleated Red Blood Cells Perc 0.0 % (0.0-0.2); Platelet Count Result 303 k/mm3 (150-375); Red Blood Count 4.64 M/mm3 (4.2-5.4); White Blood Count 6.1 K/mm3 (4.5-10.0)
[2025-03-09 12:35] LABS: Alanine Aminotransferase 16 U/L (6-35); Albumin Level 4.1 g/dL (3.5-5.1); Alkaline Phosphatase 53 U/L (38-126); Anion Gap 6 mmol/L (4-12); Aspartate Amino Transferase 25 U/L (14-36); Bilirubin,Total 1.9 mg/dL (0.2-1.3); Blood Urea Nitrogen 13 mg/dL (7-17); Calcium 8.8 mg/dL (8.4-10.2); Carbon Dioxide 22 mmol/L (22-30); Chloride 107 mmol/L (98-107); Estimated CRCL calculation 76 ml/min; Estimated Glomerular Filt Rate > 60; Glucose 81 mg/dL (65-110); Magnesium 2.1 mg/dL (1.6-2.3); Potassium 3.5 mmol/L (3.4-5.0); Sodium 135 mmol/L (137-145); Total Protein 7.5 g/dL (6.3-8.2)
[2025-03-09 12:46] LABS: Troponin I < 0.012 ng/mL (0.000-0.034)
[2025-03-09 12:58] LABS: Influenza A QL RT-PCR Negative (Negative); Influenza B QL RT-PCR Negative (Negative); RSV RNA, RT-PCR Negative (Negative); SARS-CoV-2 RNA PCR Negative (Negative)
--- OUTSIDE RECORDS SUMMARY | 2025-03-09 13:08 | XMS_ITS | Clinical Summary ---
Author Organization [facility] Address [address] [place] [address] Care Team Providers Care Slitter Scorer Cut Off Operator Name Role Phone Alex Chamberlain NATIONAL BUSINESS DIRECTOR-MANAGER EMERGENCY DEPARTMENT Primary Care Provider Source Comments [facility],non-owned Affiliates and Associated Physician Practices is amultiple site organization consisting of ambulatory clinics and hospital sitesin [place], [place], [place] and [place]. This disclosure is being madepursuant to the Care Everywhere program and may not contain all information available regarding this patient. Last updated 18.[facility] Allergies No known active allergies Medications * [...] fluticasone propionate (Flonase) 50 MCG/ACT nasal spray [place] 1 spray every day by intranasal route. [...] vitamin D, ergocalciferol , (Drisdol) 1.25 MG (70763 UT) capsule Take 1 (one) capsule by [...] HEPATITIS SCREEN ACUTE Routine 06/07/2019 7:57 AM COMMUNITY OUTREACH SPECIALIST Medication management from Last 3 Months or Most Recently Relevant to Health Maintenance Results * HEPATITIS SCREEN ACUTE (06/07/2019 7:57 AM COMMUNITY OUTREACH SPECIALIST) Hepatitis A Virus Antibody IgM NON-REACTI VE NON-REACT [facility] Comment: For additional information, please refer to http://education.Sokikom.Unyqe/faq/DIC031 (This link is being provided for informational/ [...] a test for HCV RNA (test code 71188) is suggested. For additional information please refer to http://education.Bixti.com/faq/SLY24s1 (This link is being provided for informational/ educational purposes only.) Test Performed at: [facility] [address] [place] [address] TIMA PETIT DO,MPH Blood BLOOD SPECIMEN / Unknown 06/07/2019 7:57 AM COMMUNITY OUTREACH SPECIALIST 06/07/2019 7:58 AM COMMUNITY OUTREACH SPECIALIST us [facility] - CHEMISTRY ORDERABLES F inal Result Performing Organization Address City/State/[facility] Co de Phone Number [facility] [address] [place] [address] from Last 3 Months or Most Recently Relevant to Health Maintenance Insurance [facility] Care Teams Slitter Scorer Cut Off Operator Relationship Specialty Start Date End Date Alex Chamberlain, NATIONAL BUSINESS DIRECTOR-MANAGER EMERGENCY DEPARTMENT [address] [place] [phone] PCP - General Nurse Practitioner Family 11/13/17
--- OUTSIDE RECORDS SUMMARY | 2025-03-09 13:08 | XMS_ITS | Encounter Summary ---
Author Organization [facility] Address [address] [place] [address] Care Team Providers Care Varnisher Name Role Phone ChamberlainAlex COMMUNITY FUNDRAISER-RN CLINICAL DOCUMENTATION SPECIALIST Primary Care Provider Reason for Visit * Reason Onset Date Comments Nurse Only 04/24/2024 Encounter Details Date Type Department Care Team (Late st Contact Info) Description 04/24/2024 Telephone [facility] - Dermatology [address] [place] [address], [place] [phone] Silvia Quezada MD [facility] [place] [place] [address] Nurse Only Social History Tobacco [...] of Dupixent and transfer of script to [facility] Specialty pharmacy. Patient has already received a phone call from [facility] regarding her prescription. Ana Cyr- Pharmacy Fine Patcher (Dermatology) LIANCE ASSOCIATE * Ana Cyr - 04/25/2024 2:44 PM CDT Medication Prior Authorization: Medication: Dupixent 300mg/2ml pen Status: Approved 04/23/24 through 04/23/25 Submitted via: Apex[employer] Insurance: [employer] [place] (p: [phone]) Case/Reference number: [id number] RX Card Billing Info: BIN: [id number] PCN: ADV GROUP: [id number] ID: [id number] [place] approval notice uploaded to media tab. Routed approval details to [facility]. Ana Cyr- Pharmacy Fine Patcher (Dermatology) documented in this encounter Miscellaneous Notes * Telephone Encounter - Bebe Hernandez - 04/24/2024 9:35 AM CDT Pt would like to speak with provider regarding medication. She is stating that she has followed thesteps that provider instructed to clearing her eczema and its has got worst. She also is asking if their is an update on injection medication from insurance. CB# [phone] documented in this encounter Plan of Treatment Not on file documented as of this encounter Visit Diagnoses Not on filedocumented in this encounter Care Teams Varnisher Relationship Specialty Start Date End Date Alex Chamberlain, COMMUNITY FUNDRAISER-RN CLINICAL DOCUMENTATION SPECIALIST [address] [place] [address] [place] [address] PCP - General Nurse Practitioner Family 11/13/17 documented as of this encounter
--- OUTSIDE RECORDS SUMMARY | 2025-03-09 13:08 | XMS_ITS | Encounter Summary ---
Author Organization [facility] Address [address] [place] [address] Care Team Providers Care Supervisor Component Assembler Name Role Phone Alex Chamberlain Primary Care Provider Encounter Details Date Type Department Care Team (Late st Contact Info) Description 04/02/2020 Telephone [facility] [address] [place] [address] Lakeshia Herrera PA [address] [facility] [address] [place] [address] Social History Tobacco Use Types Packs/Day Years [...] on filedocumented in this encounter Care Teams Supervisor Component Assembler Relationship Specialty Start Date End Date Alex Chamberlain APRN-CNP [address] [place] [phone] PCP - General Nurse Practitioner Family 11/13/17 documented as of this encounter
--- OUTSIDE RECORDS SUMMARY | 2025-03-09 13:08 | XMS_ITS | Clinical Summary ---
Author Organization [facility] Address [address] [place] [address] Phone Care Team Providers Care Cargo Operations Agent Name Role Phone Alex Chamberlain APRN, COMMERCIAL REVIEW APPRAISER Primary Care Provider Deepali Mcgovern MD Unavailable [...] Comments Blood Pressure 105/44 07/10/2024 10:10 AM LUNCH COOK Pulse 69 07/10/2024 10:10 AM LUNCH COOK Temperature 36.3 C (97.4 F) 07/10/2024 10:10 AM LUNCH COOK Respiratory Rate 16 07/10/2024 10:10 AM LUNCH COOK Oxygen Saturation 100% 07/10/2024 10:10 AM LUNCH COOK Inhaled Oxygen Concentration - - Weight 60.3 kg (133 lb) 07/10/2024 9:30 AM LUNCH COOK Height 152.4 cm (5') 07/10/2024 9:30 AM LUNCH COOK Body Mass Index 25.97 07/10/2024 9:30 AM LUNCH COOK Plan of Treatment Upcoming Encounters Date Type Department Care Team (Late st Contact Info) Description 04/27/2025 10:00 AM LUNCH COOK Office Visit [facility] - [facility] - [place] [address] [place] [phone] Deepali Mcgovern MD [address] [address] Health Maintenance Due Date Last Done Comments [...] age to complete this topic Insurance [place]ICAID [place] Care Teams Cargo Operations Agent Relationship Specialty Start Date End Date Alex Chamberlain, CARPENTER, COMMERCIAL REVIEW APPRAISER [address] [place] [address] PCP - General Certified Nurse Practitioner 02/19/19 Deepali Mcgovern MD [address] [phone] Consulting Physician Endocrinology 04/14/22
== END 2025-03-09 14:26 | disposition home or self-care (01) ==
PROVIDERS: Emergency Provider Student in an Organized Health Care Education/Training Program; PCP Nurse Practitioner Family
DX: R06.02 Shortness of breath (principal); R06.4 Hyperventilation; R07.9 Chest pain, unspecified; E80.6 Other disorders of bilirubin metabolism; Z20.822 Contact with and (suspected) exposure to COVID-19
CPT/HCPCS: 36415; 71045; 80053; 82248; 83735; 84484; 85025; 85380; 87637; 93005; 99284